=== PATIENT | male | born 1985 | race African-American/Black ===

== ENCOUNTER 2017-11-26 22:49 | Inpatient (IN) ==
[2017-11-26] MEDS ORDERED: SODIUM CHLORIDE 0.9% 500 ML IV STA (23:53)
[2017-11-27 00:24] LABS: Basophils % 0.3 % (0.0-0.8); Eosinophils % 0.1 % (0.00-10.9); Hematocrit 42.2 VOL% (42.0-52.0); Hemoglobin 14.4 GM/DL (14.0-18.0); Immature Granulocytes % 2.9 %; Immature Granulocytes Absolute 0.28 #; Lymphocytes # 1.1 10*3/uL (1.4-4.0); Lymphocytes % 11.3 % (21.2-54.2); Mean Corpuscular HGB Conc 34.1 GM/DL (32-36); Mean Corpuscular Hemoglobin 26 PG (27-34); Mean Corpuscular Volume 77.4 FL (87-102); Mean Platelet Volume 10.2 FL (9.6-12.0); Monocytes # 0.9 10*3/uL (0.11-0.8); Monocytes % 9.2 % (1.7-12.7); Neutrophils # 7.4 10*3/uL (1.4-7.4); Neutrophils % 76.2 % (38.7-73.9); Platelet Count 304 T/CUMM (130-400); Red Blood Count 5.45 MC/CUMM (3.8-5.5); Red Cell Distribution Width 12.9 % (9.3-17.3); White Blood Count 9.7 T/CUMM (4-12)
[2017-11-27 00:33] LABS: INR 1.1; PT Patient Result 11.1 SECS
[2017-11-27 00:56] LABS: Alanine Aminotransferase 36 U/L (16-61); Alkaline Phosphatase 73 U/L (45-117); Aspartate Amino Transferase 22 U/L (0-37); Blood Urea Nitrogen 12 MG/DL (7-18); Calcium 9.8 MG/DL (8.5-10.1); Glucose 352 MG/DL (74-106); Osmolality,Calculated 275.7 MOS/KG (273-304); Potassium 4.5 MMOL/L (3.5-5.1); Sodium 131 MMOL/L (136-145); Total Protein 7.8 G/DL (6.4-8.3); Uric Acid 4.7 MG/DL (3.5-7.2)
[2017-11-27] MEDS ORDERED: INSULIN REGULAR 100 UNIT/ML SUBCUT STA (01:19)
[2017-11-27] MEDS ORDERED: SODIUM CHLORIDE 0.9% 500 ML IV STA (01:20)
[2017-11-27 01:25] LABS: Ammonia 43 UMOL/L (11-32)
[2017-11-27 01:29] LABS: Sedimentation Rate-Westergren 25 MM/HR (0-15)
[2017-11-27 02:11] LABS: Apearance,Urine CLEAR (Clear); Bilirubin,Urine Negative (Negative); Blood, Urine Negative (Negative); Glucose,Urine (UA) >=500 mg/dL (Negative); Ketones,Urine 20 mg/dL (Negative); Mucus,Urine Occasional /LPF (Occasional); Nitrite,Urine Negative (Negative); Protein,Urine Negative; RBC,Urine 1 /HPF (0-4); Squamous Epithelial Cell,Urine Occasional /HPF (0-10); Urine Color Yellow (Yellow); Urine Specific Gravity 1.023 (1.001-1.035); Urine Urobilinogen < 2.0 EU/DL (0.2-1.0); WBC,Urine 1 /HPF (0-6)
[2017-11-27] MEDS ORDERED: diphenhydrAMINE CAP 25 MG CAPSULE PO PRN (02:29)
[2017-11-27] MEDS ORDERED: ACETAMINOPHEN 325 MG TABLET PO PRN (02:29)
[2017-11-27] MEDS ORDERED: GLUCAGON 1 MG VIAL IM PRN ×2 (02:29→12:40)
[2017-11-27] MEDS ORDERED: DEXTROSE 50% 25 GM/50 ML VIAL IV PRN ×2 (02:29→12:40)
[2017-11-27] MEDS ORDERED: LACTULOSE 20 GM/30 ML UDCUP PO PRN (02:29)
[2017-11-27] MEDS ORDERED: ONDANSETRON 4 MG/2 ML VIAL IV PRN (02:29)
[2017-11-27 03:18] LABS: HIV Antigen/Antibody Result Nonreactive (Nonreactive); Prolactin 5.6 NG/ML
[2017-11-27] MEDS: SODIUM CHLORIDE 0.9% 1,000 ML IV SCH (03:44)
[2017-11-27] MEDS ORDERED: LACTULOSE 20 GM/30 ML UDCUP PO ONE (04:00)
[2017-11-27 04:57] LABS: Basophils % 0.5 % (0.0-0.8); Eosinophils # 0.1 10*3/uL (0.0-0.87); Eosinophils % 0.8 % (0.00-10.9); Hematocrit 40.5 VOL% (42.0-52.0); Hemoglobin 13.7 GM/DL (14.0-18.0); Immature Granulocytes % 2.8 %; Immature Granulocytes Absolute 0.21 #; Lymphocytes # 1.6 10*3/uL (1.4-4.0); Lymphocytes % 21.1 % (21.2-54.2); Mean Corpuscular HGB Conc 33.8 GM/DL (32-36); Mean Corpuscular Hemoglobin 26 PG (27-34); Mean Corpuscular Volume 78.2 FL (87-102); Mean Platelet Volume 9.9 FL (9.6-12.0); Monocytes # 0.8 10*3/uL (0.11-0.8); Monocytes % 10.5 % (1.7-12.7); Neutrophils # 4.9 10*3/uL (1.4-7.4); Neutrophils % 64.3 % (38.7-73.9); Platelet Count 294 T/CUMM (130-400); Red Blood Count 5.18 MC/CUMM (3.8-5.5); Red Cell Distribution Width 13.1 % (9.3-17.3); White Blood Count 7.6 T/CUMM (4-12)
[2017-11-27 05:11] LABS: Ammonia < 10 UMOL/L (11-32)
[2017-11-27 05:34] LABS: Albumin 3.6 G/DL (3.4-5.0); Bilirubin,Total 0.7 MG/DL (0.2-1.0); Calcium 8.9 MG/DL (8.5-10.1); Osmolality,Calculated 275.1 MOS/KG (273-304); Potassium 3.8 MMOL/L (3.5-5.1); Risk Ratio 6.63; Total Protein 7.1 G/DL (6.4-8.3); VLDL CHOLESTEROL 35.6 MG/DL
[2017-11-27] MEDS: INSULIN REGULAR 100 UNIT/ML SUBCUT SCH ×3 (06:12→18:00)
[2017-11-27 06:34] LABS: Hepatitis A Ab IgM Quant 0.14 Index; Hepatitis A Ab IgM Result Negative (Negative); Hepatitis B Core IgM Quant 0.07 Index; Hepatitis B Core IgM Result Negative (Negative); Hepatitis B Surface Ag Quant < 0.10 Index; Hepatitis B Surface Ag Result Negative (Negative); Hepatitis C Virus Ab Quant 0.09 Index; Hepatitis C Virus Ab Result Negative (Negative)
[2017-11-27 06:37] LABS: Barbiturates Screen,Urine Negative (Negative); Benzodiazepines Screen,Urine Negative (Negative); Cannabinoid Screen,Urine Negative (Negative); Opiate Screen,Urine Negative (Negative); Phencyclidine Screen,Urine Negative (Negative)
[2017-11-27] MEDS: PANTOPRAZOLE 40 MG TABLET PO SCH (09:02)
[2017-11-27] MEDS ORDERED: VANCOMYCIN INJ 2,250 MG in SODIUM CHLORIDE 0.9% 500 ML IV ONE (16:00)
[2017-11-27 16:38] LABS: Glucose,CSF 136 MG/DL (40-70)
[2017-11-27] MEDS ORDERED: INSULIN GLARGINE 100 UNIT/ML SUBCUT SCH (17:00)
[2017-11-27 17:23] LABS: Lymphocytes,CSF 91 %; Neutrophils,CSF 9 %; Red Blood Cell,CSF 248 C/CUMM; White Blood Cell,CSF 106 C/CUMM
[2017-11-27 17:24] LABS: Appearance,CSF Clear
[2017-11-27] MEDS: cefTRIAXone 2,000 MG in SYRINGE 1 EACH IV SCH (17:58)
[2017-11-27] MEDS: metFORMIN 500 MG TABLET PO SCH (17:59)
[2017-11-27] MEDS: ACYCLOVIR INJ 900 MG in SODIUM CHLORIDE 0.9% 250 ML IV SCH (20:32)
[2017-11-28] MEDS: INSULIN REGULAR 100 UNIT/ML SUBCUT SCH ×5 (00:38→18:00)
[2017-11-28] MEDS: VANCOMYCIN INJ 1,250 MG in SODIUM CHLORIDE 0.9% 250 ML IV SCH ×3 (00:39→18:02)
[2017-11-28] MEDS: cefTRIAXone 2,000 MG in SYRINGE 1 EACH IV SCH ×2 (03:49→15:55)
[2017-11-28] MEDS: ACYCLOVIR INJ 900 MG in SODIUM CHLORIDE 0.9% 250 ML IV SCH ×3 (05:11→22:26)
[2017-11-28 05:20] LABS: Basophils % 0.5 % (0.0-0.8); Eosinophils # 0.1 10*3/uL (0.0-0.87); Eosinophils % 0.9 % (0.00-10.9); Hematocrit 36.7 VOL% (42.0-52.0); Hemoglobin 12.2 GM/DL (14.0-18.0); Immature Granulocytes Absolute 0.13 #; Lymphocytes # 1.3 10*3/uL (1.4-4.0); Lymphocytes % 19.7 % (21.2-54.2); Mean Corpuscular HGB Conc 33.2 GM/DL (32-36); Mean Corpuscular Hemoglobin 26 PG (27-34); Mean Corpuscular Volume 78.9 FL (87-102); Mean Platelet Volume 10.1 FL (9.6-12.0); Monocytes # 0.7 10*3/uL (0.11-0.8); Monocytes % 10.6 % (1.7-12.7); Neutrophils # 4.3 10*3/uL (1.4-7.4); Neutrophils % 66.3 % (38.7-73.9); Platelet Count 261 T/CUMM (130-400); Red Blood Count 4.65 MC/CUMM (3.8-5.5); Red Cell Distribution Width 13.2 % (9.3-17.3); White Blood Count 6.5 T/CUMM (4-12)
[2017-11-28 05:57] LABS: Albumin 2.9 G/DL (3.4-5.0); Bilirubin,Total 0.7 MG/DL (0.2-1.0); Calcium 8.3 MG/DL (8.5-10.1); Potassium 3.5 MMOL/L (3.5-5.1); Total Protein 6.1 G/DL (6.4-8.3)
[2017-11-28] MEDS: metFORMIN 500 MG TABLET PO SCH (08:57)
[2017-11-28] MEDS: PANTOPRAZOLE 40 MG TABLET PO SCH (08:57)
[2017-11-28] MEDS: ATORVASTATIN 20 MG TABLET PO SCH (08:57)
[2017-11-28] MEDS ORDERED: metFORMIN 500 MG TABLET PO SCH (12:19)
[2017-11-28] MEDS ORDERED: SODIUM CHLORIDE 0.9% 1,000 ML IV ONE (12:19)
[2017-11-28] MEDS: SODIUM CHLORIDE 0.9% 1,000 ML IV SCH (13:04)
[2017-11-28] MEDS ORDERED: TUBERCULIN SKIN TEST 0.1 ML SYRINGE INTRADERM ONE (16:33)
[2017-11-28] MEDS: ENOXAPARIN 40 MG/0.4 ML SYRINGE SUBCUT SCH (21:10)
[2017-11-28] MEDS: INSULIN GLARGINE 100 UNIT/ML SUBCUT SCH (21:10)
[2017-11-29] MEDS: INSULIN REGULAR 100 UNIT/ML SUBCUT SCH ×4 (00:23→17:45)
[2017-11-29] MEDS: VANCOMYCIN INJ 1,250 MG in SODIUM CHLORIDE 0.9% 250 ML IV SCH (02:31)
[2017-11-29] MEDS: cefTRIAXone 2,000 MG in SYRINGE 1 EACH IV SCH ×2 (04:32→17:40)
[2017-11-29] MEDS: ACYCLOVIR INJ 900 MG in SODIUM CHLORIDE 0.9% 250 ML IV SCH ×3 (04:34→21:17)
[2017-11-29] MEDS: SODIUM CHLORIDE 0.9% 1,000 ML IV SCH ×3 (08:52→21:00)
[2017-11-29] MEDS: PANTOPRAZOLE 40 MG TABLET PO SCH (08:53)
[2017-11-29] MEDS: ATORVASTATIN 20 MG TABLET PO SCH (08:53)
[2017-11-29] MEDS: INSULIN GLARGINE 100 UNIT/ML SUBCUT SCH ×2 (08:54→21:17)
[2017-11-29] MEDS: VANCOMYCIN INJ 1,500 MG in SODIUM CHLORIDE 0.9% 500 ML IV SCH ×2 (09:00→17:45)
[2017-11-29] MEDS: ENOXAPARIN 40 MG/0.4 ML SYRINGE SUBCUT SCH (21:17)
[2017-11-30] MEDS: INSULIN REGULAR 100 UNIT/ML SUBCUT SCH ×4 (00:57→18:40)
[2017-11-30] MEDS: VANCOMYCIN INJ 1,500 MG in SODIUM CHLORIDE 0.9% 500 ML IV SCH ×2 (02:44→10:24)
[2017-11-30] MEDS: cefTRIAXone 2,000 MG in SYRINGE 1 EACH IV SCH (04:01)
[2017-11-30] MEDS: ACYCLOVIR INJ 900 MG in SODIUM CHLORIDE 0.9% 250 ML IV SCH ×3 (05:20→21:06)
[2017-11-30] MEDS: SODIUM CHLORIDE 0.9% 1,000 ML IV SCH ×3 (07:30→12:54)
[2017-11-30] MEDS: INSULIN GLARGINE 100 UNIT/ML SUBCUT SCH ×2 (10:23→21:06)
[2017-11-30] MEDS: ATORVASTATIN 20 MG TABLET PO SCH (10:24)
[2017-11-30] MEDS: PANTOPRAZOLE 40 MG TABLET PO SCH (10:24)
[2017-11-30] MEDS: ENOXAPARIN 40 MG/0.4 ML SYRINGE SUBCUT SCH (21:08)
[2017-12-01] MEDS: INSULIN REGULAR 100 UNIT/ML SUBCUT SCH ×4 (00:46→18:36)
[2017-12-01] MEDS: SODIUM CHLORIDE 0.9% 1,000 ML IV SCH ×5 (01:27→23:03)
[2017-12-01] MEDS: ACYCLOVIR INJ 900 MG in SODIUM CHLORIDE 0.9% 250 ML IV SCH ×2 (04:43→14:30)
[2017-12-01 06:03] LABS: Basophils % 0.4 % (0.0-0.8); Eosinophils # 0.1 10*3/uL (0.0-0.87); Hematocrit 38.4 VOL% (42.0-52.0); Immature Granulocytes % 1.7 %; Immature Granulocytes Absolute 0.12 #; Lymphocytes % 14.5 % (21.2-54.2); Mean Corpuscular HGB Conc 33.9 GM/DL (32-36); Mean Corpuscular Hemoglobin 27 PG (27-34); Mean Corpuscular Volume 78.2 FL (87-102); Mean Platelet Volume 10.1 FL (9.6-12.0); Monocytes # 0.6 10*3/uL (0.11-0.8); Monocytes % 8.3 % (1.7-12.7); Neutrophils # 5.2 10*3/uL (1.4-7.4); Neutrophils % 73.1 % (38.7-73.9); Platelet Count 285 T/CUMM (130-400); Red Blood Count 4.91 MC/CUMM (3.8-5.5); Red Cell Distribution Width 13.2 % (9.3-17.3); White Blood Count 7.1 T/CUMM (4-12)
[2017-12-01 06:36] LABS: Calcium 8.5 MG/DL (8.5-10.1); Osmolality,Calculated 276.7 MOS/KG (273-304)
[2017-12-01] MEDS ORDERED: PROMETHAZINE 25 MG/1 ML VIAL IM ONE (07:00)
[2017-12-01] MEDS ORDERED: MEPERIDINE 50 MG/1 ML VIAL IM ONE (07:00)
[2017-12-01] MEDS ORDERED: GLYCOPYRROLATE 0.4 MG/2 ML VIAL IM ONE (07:00)
[2017-12-01] MEDS ORDERED: MIDAZOLAM 2 MG/2 ML VIAL ONE (07:01)
[2017-12-01] MEDS ORDERED: LIDOCAINE 1% 20 ML VIAL MISC INJ ONE (07:30)
[2017-12-01] MEDS ORDERED: MIDAZOLAM 2 MG/2 ML VIAL IV ONE (07:30)
[2017-12-01] MEDS ORDERED: LIDOCAINE 2% VISCOUS 100 ML BOTTLE SWISH/SPIT ONE (07:30)
[2017-12-01] MEDS ORDERED: LIDOCAINE 2% 20 ML VIAL RESP TX ONE (07:30)
[2017-12-01] MEDS: INSULIN GLARGINE 100 UNIT/ML SUBCUT SCH ×2 (09:00→20:54)
[2017-12-01] MEDS: ATORVASTATIN 20 MG TABLET PO SCH (09:00)
[2017-12-01] MEDS: PANTOPRAZOLE 40 MG TABLET PO SCH (09:00)
[2017-12-01 11:01] LABS: VDRL Spinal Fluid Negative (Negative)
[2017-12-01 14:50] LABS: CMV PCR Source CSF; Epstein-Barr Virus Result Negative (Negative); Epstein-Barr Virus Source CSF; Specimen Source CSF
[2017-12-01] MEDS: methylPREDNISolone SOD SUC 125 MG/2 ML VIAL IV SCH (18:34)
[2017-12-01] MEDS: ENOXAPARIN 40 MG/0.4 ML SYRINGE SUBCUT SCH (20:54)
[2017-12-02] MEDS: INSULIN REGULAR 100 UNIT/ML SUBCUT SCH ×5 (00:46→19:42)
[2017-12-02] MEDS: methylPREDNISolone SOD SUC 125 MG/2 ML VIAL IV SCH ×3 (00:48→17:19)
[2017-12-02] MEDS: SODIUM CHLORIDE 0.9% 1,000 ML IV SCH ×6 (05:47→22:18)
[2017-12-02] MEDS: INSULIN GLARGINE 100 UNIT/ML SUBCUT SCH ×2 (08:52→21:46)
[2017-12-02] MEDS: PANTOPRAZOLE 40 MG TABLET PO SCH (08:53)
[2017-12-02] MEDS: ATORVASTATIN 20 MG TABLET PO SCH (08:53)
[2017-12-02 18:51] LABS: TB2 Ag Minus Result 0.08 IU/mL
[2017-12-02] MEDS: ENOXAPARIN 40 MG/0.4 ML SYRINGE SUBCUT SCH (21:46)
[2017-12-02 22:01] LABS: West Nile Virus Ab, IgG, CSF Negative (Negative); West Nile Virus Ab, IgM, CSF Negative (Negative)
[2017-12-03] MEDS: INSULIN REGULAR 100 UNIT/ML SUBCUT SCH ×5 (01:26→23:40)
[2017-12-03] MEDS: SODIUM CHLORIDE 0.9% 1,000 ML IV SCH ×3 (01:26→12:12)
[2017-12-03] MEDS: methylPREDNISolone SOD SUC 125 MG/2 ML VIAL IV SCH ×3 (01:29→18:24)
[2017-12-03] MEDS: INSULIN GLARGINE 100 UNIT/ML SUBCUT SCH ×2 (09:53→21:12)
[2017-12-03] MEDS: IMMUNE GLOBULIN 10% 20 GM, IMMUNE GLOBULIN 10% 10 GM, IMMUNE GLOBULIN 10% 5 GM in PREMI... IV SCH (10:14)
[2017-12-03] MEDS: ATORVASTATIN 20 MG TABLET PO SCH (10:20)
[2017-12-03] MEDS: PANTOPRAZOLE 40 MG TABLET PO SCH (10:20)
[2017-12-03] MEDS: ENOXAPARIN 40 MG/0.4 ML SYRINGE SUBCUT SCH (21:12)
[2017-12-04] MEDS: SODIUM CHLORIDE 0.9% 1,000 ML IV SCH ×3 (01:26→09:48)
[2017-12-04] MEDS: methylPREDNISolone SOD SUC 125 MG/2 ML VIAL IV SCH (02:15)
[2017-12-04 06:13] LABS: Basophils % 0.3 % (0.0-0.8); Hematocrit 37.4 VOL% (42.0-52.0); Hemoglobin 12.8 GM/DL (14.0-18.0); Immature Granulocytes % 5.5 %; Immature Granulocytes Absolute 0.55 #; Lymphocytes # 0.7 10*3/uL (1.4-4.0); Lymphocytes % 6.8 % (21.2-54.2); Mean Corpuscular HGB Conc 34.2 GM/DL (32-36); Mean Corpuscular Hemoglobin 26 PG (27-34); Mean Corpuscular Volume 76.8 FL (87-102); Mean Platelet Volume 10.3 FL (9.6-12.0); Monocytes # 0.4 10*3/uL (0.11-0.8); Monocytes % 4.4 % (1.7-12.7); Neutrophils # 8.2 10*3/uL (1.4-7.4); Platelet Count 327 T/CUMM (130-400); Red Blood Count 4.87 MC/CUMM (3.8-5.5); Red Cell Distribution Width 13.2 % (9.3-17.3); White Blood Count 9.9 T/CUMM (4-12)
[2017-12-04] MEDS: INSULIN REGULAR 100 UNIT/ML SUBCUT SCH ×3 (06:29→18:26)
[2017-12-04 06:38] LABS: Calcium 8.6 MG/DL (8.5-10.1); Osmolality,Calculated 277.8 MOS/KG (273-304); Potassium 3.8 MMOL/L (3.5-5.1)
[2017-12-04 06:49] LABS: Band Neutrophils 1 % (0-10); Lymphocytes 3 % (20-55); Segmented Neutrophils 92 % (50-85); Total Cells Counted 100
[2017-12-04 06:50] LABS: Hypochromasia 1+; Platelet Estimate Adequate
[2017-12-04] MEDS: IMMUNE GLOBULIN 10% 20 GM, IMMUNE GLOBULIN 10% 10 GM, IMMUNE GLOBULIN 10% 5 GM in PREMI... IV SCH (09:37)
[2017-12-04] MEDS: INSULIN GLARGINE 100 UNIT/ML SUBCUT SCH ×2 (09:38→20:41)
[2017-12-04] MEDS: PANTOPRAZOLE 40 MG TABLET PO SCH (09:38)
[2017-12-04] MEDS: ATORVASTATIN 20 MG TABLET PO SCH (09:38)
[2017-12-04] MEDS: predniSONE 20 MG TABLET PO SCH (09:39)
[2017-12-04] MEDS: ENOXAPARIN 40 MG/0.4 ML SYRINGE SUBCUT SCH (20:40)
[2017-12-05] MEDS: INSULIN REGULAR 100 UNIT/ML SUBCUT SCH ×4 (00:02→17:51)
[2017-12-05] MEDS: ATORVASTATIN 20 MG TABLET PO SCH (09:05)
[2017-12-05] MEDS: predniSONE 20 MG TABLET PO SCH (09:05)
[2017-12-05] MEDS: PANTOPRAZOLE 40 MG TABLET PO SCH (09:05)
[2017-12-05] MEDS: INSULIN GLARGINE 100 UNIT/ML SUBCUT SCH ×2 (09:06→22:03)
[2017-12-05] MEDS: IMMUNE GLOBULIN 10% 20 GM, IMMUNE GLOBULIN 10% 10 GM, IMMUNE GLOBULIN 10% 5 GM in PREMI... IV SCH (09:09)
[2017-12-05 15:31] LABS: M. Tuberculosis PCR Result Negative (Negative); M. Tuberculosis PCR Source csf
[2017-12-05] MEDS: ENOXAPARIN 40 MG/0.4 ML SYRINGE SUBCUT SCH (22:05)
[2017-12-06] MEDS: INSULIN REGULAR 100 UNIT/ML SUBCUT SCH ×5 (05:24→23:09)
[2017-12-06] MEDS: ATORVASTATIN 20 MG TABLET PO SCH (10:23)
[2017-12-06] MEDS: PANTOPRAZOLE 40 MG TABLET PO SCH (10:23)
[2017-12-06] MEDS: predniSONE 20 MG TABLET PO SCH (10:23)
[2017-12-06] MEDS: INSULIN GLARGINE 100 UNIT/ML SUBCUT SCH ×2 (10:23→20:33)
[2017-12-06] MEDS: IMMUNE GLOBULIN 10% 20 GM, IMMUNE GLOBULIN 10% 10 GM, IMMUNE GLOBULIN 10% 5 GM in PREMI... IV SCH (10:55)
[2017-12-06] MEDS: ENOXAPARIN 40 MG/0.4 ML SYRINGE SUBCUT SCH (20:33)
[2017-12-07] MEDS: INSULIN REGULAR 100 UNIT/ML SUBCUT SCH ×3 (06:19→17:40)
[2017-12-07] MEDS: IMMUNE GLOBULIN 10% 20 GM, IMMUNE GLOBULIN 10% 10 GM, IMMUNE GLOBULIN 10% 5 GM in PREMI... IV SCH (09:26)
[2017-12-07] MEDS: ATORVASTATIN 20 MG TABLET PO SCH (09:29)
[2017-12-07] MEDS: PANTOPRAZOLE 40 MG TABLET PO SCH (09:29)
[2017-12-07] MEDS: predniSONE 20 MG TABLET PO SCH (09:29)
[2017-12-07] MEDS: INSULIN GLARGINE 100 UNIT/ML SUBCUT SCH ×2 (09:29→22:21)
[2017-12-07] MEDS: COENZYME Q10 100 MG CAPSULE PO SCH (15:52)
[2017-12-07] MEDS: metFORMIN 500 MG TABLET PO SCH (17:40)
[2017-12-07] MEDS: ENOXAPARIN 40 MG/0.4 ML SYRINGE SUBCUT SCH (22:20)
[2017-12-08 01:52] LABS: HIV Antigen/Antibody Result Nonreactive (Nonreactive); Hepatitis B Surface Ag Quant < 0.10 Index; Hepatitis B Surface Ag Result Negative (Negative); Hepatitis C Virus Ab Quant 0.34 Index; Hepatitis C Virus Ab Result Negative (Negative)
[2017-12-08] MEDS: INSULIN REGULAR 100 UNIT/ML SUBCUT SCH ×4 (02:09→17:26)
[2017-12-08 05:32] LABS: Basophils % 0.6 % (0.0-0.8); Eosinophils # 0.1 10*3/uL (0.0-0.87); Eosinophils % 2.6 % (0.00-10.9); Hematocrit 39.6 VOL% (42.0-52.0); Hemoglobin 13.2 GM/DL (14.0-18.0); Immature Granulocytes % 7.8 %; Immature Granulocytes Absolute 0.42 #; Lymphocytes # 1.3 10*3/uL (1.4-4.0); Mean Corpuscular HGB Conc 33.3 GM/DL (32-36); Mean Corpuscular Hemoglobin 26 PG (27-34); Mean Corpuscular Volume 77.3 FL (87-102); Mean Platelet Volume 10.1 FL (9.6-12.0); Monocytes # 0.5 10*3/uL (0.11-0.8); Platelet Count 299 T/CUMM (130-400); Red Blood Count 5.12 MC/CUMM (3.8-5.5); Red Cell Distribution Width 13.8 % (9.3-17.3); White Blood Count 5.4 T/CUMM (4-12)
[2017-12-08 05:56] LABS: Calcium 8.5 MG/DL (8.5-10.1)
[2017-12-08 05:57] LABS: Osmolality,Calculated 268.2 MOS/KG (273-304); Potassium 3.7 MMOL/L (3.5-5.1)
[2017-12-08 07:58] LABS: Band Neutrophils 2 % (0-10); Eosinophils 2 % (0-10); Lymphocytes 27 % (20-55); Segmented Neutrophils 57 % (50-85); Total Cells Counted 100
[2017-12-08 07:59] LABS: Hypochromasia 1+; Ovalocytes Slight; Platelet Estimate Adequate
[2017-12-08] MEDS: GLIMEPIRIDE 2 MG TABLET PO SCH (08:32)
[2017-12-08] MEDS: metFORMIN 500 MG TABLET PO SCH ×2 (08:33→17:26)
[2017-12-08] MEDS: predniSONE 20 MG TABLET PO SCH (08:33)
[2017-12-08] MEDS: PANTOPRAZOLE 40 MG TABLET PO SCH (08:33)
[2017-12-08] MEDS: ATORVASTATIN 20 MG TABLET PO SCH (08:33)
[2017-12-08] MEDS: COENZYME Q10 100 MG CAPSULE PO SCH (10:39)
[2017-12-08] MEDS: INSULIN GLARGINE 100 UNIT/ML SUBCUT SCH ×2 (10:40→21:12)
[2017-12-08] MEDS: ENOXAPARIN 40 MG/0.4 ML SYRINGE SUBCUT SCH (20:41)
[2017-12-09] MEDS: INSULIN REGULAR 100 UNIT/ML SUBCUT SCH ×4 (01:54→17:38)
[2017-12-09] MEDS: INSULIN GLARGINE 100 UNIT/ML SUBCUT SCH ×2 (08:20→22:39)
[2017-12-09] MEDS: metFORMIN 500 MG TABLET PO SCH ×2 (09:17→17:38)
[2017-12-09] MEDS: predniSONE 20 MG TABLET PO SCH (09:17)
[2017-12-09] MEDS: COENZYME Q10 100 MG CAPSULE PO SCH (09:17)
[2017-12-09] MEDS: PANTOPRAZOLE 40 MG TABLET PO SCH (09:18)
[2017-12-09] MEDS: GLIMEPIRIDE 2 MG TABLET PO SCH (09:18)
[2017-12-09] MEDS: ATORVASTATIN 20 MG TABLET PO SCH (09:18)
[2017-12-09] MEDS: ENOXAPARIN 40 MG/0.4 ML SYRINGE SUBCUT SCH (22:39)
[2017-12-10] MEDS: INSULIN REGULAR 100 UNIT/ML SUBCUT SCH ×4 (00:30→18:31)
[2017-12-10] MEDS: COENZYME Q10 100 MG CAPSULE PO SCH (11:09)
[2017-12-10] MEDS: ATORVASTATIN 20 MG TABLET PO SCH (11:09)
[2017-12-10] MEDS: INSULIN GLARGINE 100 UNIT/ML SUBCUT SCH ×2 (11:09→21:59)
[2017-12-10] MEDS: GLIMEPIRIDE 2 MG TABLET PO SCH (11:09)
[2017-12-10] MEDS: PANTOPRAZOLE 40 MG TABLET PO SCH (11:09)
[2017-12-10] MEDS: metFORMIN 500 MG TABLET PO SCH ×2 (11:10→18:31)
[2017-12-10] MEDS: predniSONE 20 MG TABLET PO SCH (14:36)
[2017-12-10] MEDS: ENOXAPARIN 40 MG/0.4 ML SYRINGE SUBCUT SCH (21:58)
[2017-12-11] MEDS: INSULIN REGULAR 100 UNIT/ML SUBCUT SCH ×3 (01:12→11:57)
[2017-12-11 04:33] LABS: Basophils # 0.1 10*3/uL (0.0-0.2); Basophils % 0.7 % (0.0-0.8); Eosinophils # 0.1 10*3/uL (0.0-0.87); Eosinophils % 1.4 % (0.00-10.9); Hemoglobin 13.1 GM/DL (14.0-18.0); Immature Granulocytes % 6.4 %; Immature Granulocytes Absolute 0.47 #; Lymphocytes # 1.4 10*3/uL (1.4-4.0); Lymphocytes % 18.8 % (21.2-54.2); Mean Corpuscular HGB Conc 32.8 GM/DL (32-36); Mean Corpuscular Hemoglobin 26 PG (27-34); Mean Corpuscular Volume 79.4 FL (87-102); Monocytes # 0.7 10*3/uL (0.11-0.8); Monocytes % 9.5 % (1.7-12.7); Neutrophils # 4.7 10*3/uL (1.4-7.4); Neutrophils % 63.2 % (38.7-73.9); Platelet Count 258 T/CUMM (130-400); Red Blood Count 5.04 MC/CUMM (3.8-5.5); Red Cell Distribution Width 13.8 % (9.3-17.3); White Blood Count 7.4 T/CUMM (4-12)
[2017-12-11 04:48] LABS: Calcium 8.8 MG/DL (8.5-10.1); Osmolality,Calculated 266.4 MOS/KG (273-304); Potassium 4.4 MMOL/L (3.5-5.1)
[2017-12-11 05:10] LABS: Band Neutrophils 2 % (0-10); Hypochromasia 1+; Lymphocytes 20 % (20-55); Metamyelocytes 1 %; Microcytosis Slight; Myelocytes 1 %; Platelet Estimate Normal; Segmented Neutrophils 64 % (50-85); Total Cells Counted 100
[2017-12-11] MEDS: GLIMEPIRIDE 2 MG TABLET PO SCH (08:57)
[2017-12-11] MEDS: metFORMIN 500 MG TABLET PO SCH (08:57)
[2017-12-11] MEDS: ATORVASTATIN 20 MG TABLET PO SCH (09:35)
[2017-12-11] MEDS: PANTOPRAZOLE 40 MG TABLET PO SCH (09:35)
[2017-12-11] MEDS: predniSONE 20 MG TABLET PO SCH (09:35)
[2017-12-11] MEDS: INSULIN GLARGINE 100 UNIT/ML SUBCUT SCH (09:35)
[2017-12-11] MEDS: COENZYME Q10 100 MG CAPSULE PO SCH (09:36)
[2017-12-11 11:49] VITALS: BP 134/74
[2017-12-14] MEDS ORDERED: predniSONE 10 MG TABLET PO SCH (09:00)
[2017-12-18] MEDS ORDERED: predniSONE 5 MG TABLET PO SCH (09:00)
== END 2017-12-11 13:45 | disposition swing bed (61) | DRG 987 ==
LOC: N.ED 22:49 → N.EDINP 11-27 02:29 → SUATTDRO 11-27 02:29 → N.4E 11-27 03:11 → N.3E 11-28 11:21
PROVIDERS: ADMIT Internal Medicine; ATTEND Internal Medicine
PROC: BRONCHB (2017-12-01 07:35)

== ENCOUNTER 2018-01-16 10:52 | Observation (INO) ==
[2018-01-16 11:49] LABS: Basophils % 0.4 % (0.0-0.8); Eosinophils % 0.4 % (0.00-10.9); Hematocrit 42.6 VOL% (42.0-52.0); Hemoglobin 14.1 GM/DL (14.0-18.0); Immature Granulocytes % 2.9 %; Immature Granulocytes Absolute 0.29 #; Lymphocytes # 1.1 10*3/uL (1.4-4.0); Lymphocytes % 10.8 % (21.2-54.2); Mean Corpuscular HGB Conc 33.1 GM/DL (32-36); Mean Corpuscular Hemoglobin 26 PG (27-34); Mean Corpuscular Volume 78.9 FL (87-102); Mean Platelet Volume 9.9 FL (9.6-12.0); Monocytes # 0.9 10*3/uL (0.11-0.8); Monocytes % 9.3 % (1.7-12.7); Neutrophils # 7.7 10*3/uL (1.4-7.4); Neutrophils % 76.2 % (38.7-73.9); Platelet Count 326 T/CUMM (130-400); Red Cell Distribution Width 13.8 % (9.3-17.3)
[2018-01-16 12:01] LABS: Albumin 3.9 G/DL (3.4-5.0); Bilirubin,Total 0.5 MG/DL (0.2-1.0); Calcium 9.6 MG/DL (8.5-10.1); Osmolality,Calculated 276.8 MOS/KG (273-304); Potassium 3.8 MMOL/L (3.5-5.1); Total Protein 8.6 G/DL (6.4-8.3)
[2018-01-16 12:52] LABS: Sedimentation Rate-Westergren 20 MM/HR (0-15)
[2018-01-16] MEDS ORDERED: ONDANSETRON 4 MG/2 ML VIAL IV PRN (13:15)
[2018-01-16] MEDS ORDERED: GLUCAGON 1 MG VIAL IM PRN (13:15)
[2018-01-16] MEDS ORDERED: ACETAMINOPHEN 325 MG TABLET PO PRN (13:15)
[2018-01-16] MEDS ORDERED: DEXTROSE 50% 25 GM/50 ML VIAL IV PRN (13:15)
[2018-01-16] MEDS: SODIUM CHLORIDE 0.45% 1,000 ML IV SCH (17:28)
[2018-01-16] MEDS: ENOXAPARIN 40 MG/0.4 ML SYRINGE SUBCUT SCH (17:29)
[2018-01-16] MEDS: methylPREDNISolone SOD SUC 40 MG/1 ML VIAL IV SCH ×2 (17:29→21:28)
[2018-01-16] MEDS: metFORMIN 500 MG TABLET PO SCH (17:30)
[2018-01-16] MEDS: INSULIN LISPRO 100 UNIT/ML SUBCUT SCH ×2 (17:38→21:28)
[2018-01-16 17:47] LABS: Apearance,Urine CLEAR (Clear); Bilirubin,Urine Negative (Negative); Blood, Urine Negative (Negative); Glucose,Urine (UA) Negative (Negative); Ketones,Urine Negative (Negative); Nitrite,Urine Negative (Negative); Protein,Urine Negative; RBC,Urine <1 /HPF (0-4); Urine Color Yellow (Yellow); Urine Urobilinogen < 2.0 EU/DL (0.2-1.0); WBC,Urine <1 /HPF (0-6)
[2018-01-16 17:54] LABS: Barbiturates Screen,Urine Negative (Negative); Benzodiazepines Screen,Urine Negative (Negative); Cannabinoid Screen,Urine Negative (Negative); Opiate Screen,Urine Negative (Negative); Phencyclidine Screen,Urine Negative (Negative)
[2018-01-16] MEDS: DOCUSATE SODIUM 100 MG CAPSULE PO SCH (21:27)
[2018-01-16] MEDS: INSULIN GLARGINE 100 UNIT/ML SUBCUT SCH (21:28)
[2018-01-17] MEDS: SODIUM CHLORIDE 0.45% 1,000 ML IV SCH ×2 (01:13→18:19)
[2018-01-17] MEDS: methylPREDNISolone SOD SUC 40 MG/1 ML VIAL IV SCH ×3 (06:01→20:35)
[2018-01-17] MEDS: DOCUSATE SODIUM 100 MG CAPSULE PO SCH ×2 (10:41→20:37)
[2018-01-17] MEDS: GLIMEPIRIDE 2 MG TABLET PO SCH (10:41)
[2018-01-17] MEDS: ATORVASTATIN 20 MG TABLET PO SCH (10:41)
[2018-01-17] MEDS: metFORMIN 500 MG TABLET PO SCH ×2 (10:41→17:14)
[2018-01-17] MEDS: PANTOPRAZOLE 40 MG TABLET PO SCH (10:41)
[2018-01-17] MEDS: INSULIN LISPRO 100 UNIT/ML SUBCUT SCH ×4 (10:42→21:50)
[2018-01-17] MEDS: ENOXAPARIN 40 MG/0.4 ML SYRINGE SUBCUT SCH (15:12)
[2018-01-17] MEDS: INSULIN GLARGINE 100 UNIT/ML SUBCUT SCH (20:36)
[2018-01-18] MEDS ORDERED: ALPRAZolam 0.5 MG TABLET PO ONE
[2018-01-18] MEDS: methylPREDNISolone SOD SUC 40 MG/1 ML VIAL IV SCH ×2 (05:31→12:19)
[2018-01-18] MEDS: INSULIN LISPRO 100 UNIT/ML SUBCUT SCH ×4 (08:48→21:22)
[2018-01-18] MEDS: ENOXAPARIN 40 MG/0.4 ML SYRINGE SUBCUT SCH (08:48)
[2018-01-18] MEDS: ATORVASTATIN 20 MG TABLET PO SCH (08:49)
[2018-01-18] MEDS: metFORMIN 500 MG TABLET PO SCH ×2 (08:49→17:20)
[2018-01-18] MEDS: DOCUSATE SODIUM 100 MG CAPSULE PO SCH ×2 (08:49→21:22)
[2018-01-18] MEDS: GLIMEPIRIDE 2 MG TABLET PO SCH (08:49)
[2018-01-18] MEDS: PANTOPRAZOLE 40 MG TABLET PO SCH (08:49)
[2018-01-18] MEDS ORDERED: methylPREDNISolone SOD SUC 125 MG/2 ML VIAL IV SCH (15:30)
[2018-01-18] MEDS: INSULIN GLARGINE 100 UNIT/ML SUBCUT SCH (21:21)
[2018-01-18] MEDS ORDERED: ZALEPLON 5 MG CAPSULE PO ONE (22:11)
[2018-01-19 05:25] LABS: Basophils % 0.3 % (0.0-0.8); Hematocrit 38.6 VOL% (42.0-52.0); Hemoglobin 12.4 GM/DL (14.0-18.0); Immature Granulocytes % 4.9 %; Immature Granulocytes Absolute 0.65 #; Lymphocytes # 2.6 10*3/uL (1.4-4.0); Lymphocytes % 19.7 % (21.2-54.2); Mean Corpuscular HGB Conc 32.1 GM/DL (32-36); Mean Corpuscular Hemoglobin 26 PG (27-34); Mean Corpuscular Volume 80.9 FL (87-102); Monocytes # 1.3 10*3/uL (0.11-0.8); Monocytes % 9.7 % (1.7-12.7); Neutrophils # 8.7 10*3/uL (1.4-7.4); Neutrophils % 65.4 % (38.7-73.9); Platelet Count 319 T/CUMM (130-400); Red Blood Count 4.77 MC/CUMM (3.8-5.5); Red Cell Distribution Width 13.7 % (9.3-17.3); White Blood Count 13.3 T/CUMM (4-12)
[2018-01-19 05:49] LABS: Band Neutrophils 1 % (0-10); Hypochromasia 1+; Lymphocytes 19 % (20-55); Platelet Estimate Adequate; Segmented Neutrophils 70 % (50-85); Total Cells Counted 100
[2018-01-19 05:50] LABS: Calcium 8.9 MG/DL (8.5-10.1); Osmolality,Calculated 287.8 MOS/KG (273-304); Potassium 3.7 MMOL/L (3.5-5.1)
[2018-01-19] MEDS: INSULIN LISPRO 100 UNIT/ML SUBCUT SCH ×4 (07:52→21:18)
[2018-01-19] MEDS: GLIMEPIRIDE 2 MG TABLET PO SCH (09:22)
[2018-01-19] MEDS: ENOXAPARIN 40 MG/0.4 ML SYRINGE SUBCUT SCH (09:22)
[2018-01-19] MEDS: DOCUSATE SODIUM 100 MG CAPSULE PO SCH ×2 (09:23→21:18)
[2018-01-19] MEDS: ATORVASTATIN 20 MG TABLET PO SCH (09:23)
[2018-01-19] MEDS: PANTOPRAZOLE 40 MG TABLET PO SCH (09:23)
[2018-01-19] MEDS: metFORMIN 500 MG TABLET PO SCH ×2 (09:23→17:37)
[2018-01-19] MEDS: QUEtiapine 25 MG TABLET PO SCH (21:18)
[2018-01-19] MEDS: INSULIN GLARGINE 100 UNIT/ML SUBCUT SCH (21:19)
[2018-01-20] MEDS: INSULIN LISPRO 100 UNIT/ML SUBCUT SCH ×4 (07:30→20:56)
[2018-01-20] MEDS: metFORMIN 500 MG TABLET PO SCH ×2 (08:32→16:43)
[2018-01-20] MEDS: DOCUSATE SODIUM 100 MG CAPSULE PO SCH ×2 (08:32→20:56)
[2018-01-20] MEDS: GLIMEPIRIDE 2 MG TABLET PO SCH (08:32)
[2018-01-20] MEDS: QUEtiapine 25 MG TABLET PO SCH ×2 (08:32→20:56)
[2018-01-20] MEDS: ATORVASTATIN 20 MG TABLET PO SCH (08:32)
[2018-01-20] MEDS: ENOXAPARIN 40 MG/0.4 ML SYRINGE SUBCUT SCH (08:32)
[2018-01-20] MEDS: PANTOPRAZOLE 40 MG TABLET PO SCH (08:32)
[2018-01-20] MEDS: INSULIN GLARGINE 100 UNIT/ML SUBCUT SCH (20:57)
[2018-01-20 21:17] VITALS: BP 124/78
== END 2018-01-20 21:08 | disposition home health service (06) ==
LOC: N.ED 10:52 → N.EDINP 10:52 → N.2E 14:54
PROVIDERS: ADMIT Family Medicine; ATTEND Family Medicine

== ENCOUNTER 2018-05-10 17:04 | Inpatient (IN) ==
[2018-05-10] MEDS ORDERED: SODIUM CHLORIDE 0.9% 1,000 ML IV STA (17:57)
[2018-05-10] MEDS ORDERED: IBUPROFEN 600 MG TABLET PO STA (17:57)
[2018-05-10 18:22] LABS: Basophils % 0.2 % (0.0-0.8); Eosinophils % 0.2 % (0.00-10.9); Hemoglobin 12.5 GM/DL (14.0-18.0); Immature Granulocytes % 0.5 %; Immature Granulocytes Absolute 0.04 #; Lymphocytes # 0.8 10*3/uL (1.4-4.0); Lymphocytes % 8.6 % (21.2-54.2); Mean Corpuscular HGB Conc 29.6 GM/DL (32-36); Mean Corpuscular Hemoglobin 26 PG (27-34); Mean Corpuscular Volume 86.7 FL (87-102); Mean Platelet Volume 13.5 FL (9.6-12.0); Monocytes # 0.2 10*3/uL (0.11-0.8); Monocytes % 2.1 % (1.7-12.7); Neutrophils # 7.8 10*3/uL (1.4-7.4); Neutrophils % 88.4 % (38.7-73.9); Platelet Count 188 T/CUMM (130-400); Red Blood Count 4.87 MC/CUMM (3.8-5.5); Red Cell Distribution Width 16.5 % (9.3-17.3); White Blood Count 8.8 T/CUMM (4-12)
[2018-05-10 18:30] LABS: Hematocrit 42.2 VOL% (42.0-52.0)
[2018-05-10 18:43] LABS: Alanine Aminotransferase 121 U/L (16-61); Albumin 2.8 G/DL (3.4-5.0); Alkaline Phosphatase 172 U/L (45-117); Aspartate Amino Transferase 59 U/L (0-37); Blood Urea Nitrogen 21 MG/DL (7-18); Calcium 10.1 MG/DL (8.5-10.1); Glucose 360 MG/DL (74-106); Potassium 3.9 MMOL/L (3.5-5.1); Sodium 157 MMOL/L (136-145); Total Protein 7.4 G/DL (6.4-8.3)
[2018-05-10] MEDS ORDERED: PIPERACILLIN/TAZOBACTAM 3,375 MG in SODIUM CHLORIDE 0.9% 100 ML IV STA (19:34)
[2018-05-10] MEDS ORDERED: SODIUM CHLORIDE 0.9% 2,000 ML IV STA (19:39)
[2018-05-10] MEDS ORDERED: metroNIDAZOLE INJ 500 MG in PREMIX 1 EACH IV STA (19:44)
[2018-05-10] MEDS ORDERED: cefTRIAXone 1,000 MG in SODIUM CHLORIDE 0.9% 100 ML IV STA (19:44)
[2018-05-10] MEDS ORDERED: ONDANSETRON 4 MG/2 ML VIAL IV PRN (21:54)
[2018-05-10] MEDS ORDERED: PROMETHAZINE 25 MG/1 ML VIAL IM PRN (21:54)
[2018-05-10] MEDS ORDERED: HYDROmorphone 2 MG/1 ML VIAL IV PRN (21:54)
[2018-05-10] MEDS ORDERED: LACTATED RINGERS 1,000 ML IV SCH (22:00)
[2018-05-10 22:02] LABS: ABG Base Excess 0.3 MMOL/L (-2.5-2.5); ABG HCO3 24.7 MMOL/L (20-26); ABG PCO2 40.2 MM HG (35-48); ABG PH 7.402 (7.35-7.45); ABG TCO2 22.9 MMOL/L (23-27)
[2018-05-10] MEDS: PROPOFOL 1,000 MG/100 ML BOTTLE IV SCH (22:10)
[2018-05-10] MEDS ORDERED: HYDROCORTISONE 100 MG VIAL ONE (22:16)
[2018-05-10] MEDS ORDERED: ROCURONIUM 100 MG/10 ML VIAL IV ONE (22:16)
[2018-05-10] MEDS ORDERED: MIDAZOLAM 10 MG/2 ML VIAL ONE (22:16)
[2018-05-10] MEDS ORDERED: fentaNYL 100 MCG/2 ML VIAL ONE (22:16)
[2018-05-10] MEDS ORDERED: SUCCINYLCHOLINE 200 MG/10 ML VIAL ONE (22:16)
[2018-05-10] MEDS ORDERED: SEVOFLURANE 1 UNIT/15 MINUTE INH ONE (22:16)
[2018-05-10] MEDS ORDERED: PROPOFOL 200 MG/20 ML VIAL IV ONE (22:16)
[2018-05-10 22:45] LABS: Basophils # 0.1 10*3/uL (0.0-0.2); Basophils % 0.9 % (0.0-0.8); Eosinophils % 0.4 % (0.00-10.9); Hematocrit 31.1 VOL% (42.0-52.0); Hemoglobin 9.3 GM/DL (14.0-18.0); Lymphocytes # 0.6 10*3/uL (1.4-4.0); Lymphocytes % 10.6 % (21.2-54.2); Mean Corpuscular HGB Conc 29.9 GM/DL (32-36); Mean Corpuscular Hemoglobin 26 PG (27-34); Mean Corpuscular Volume 86.9 FL (87-102); Mean Platelet Volume 12.5 FL (9.6-12.0); Monocytes # 0.2 10*3/uL (0.11-0.8); Monocytes % 3.4 % (1.7-12.7); Neutrophils # 4.7 10*3/uL (1.4-7.4); Neutrophils % 84.7 % (38.7-73.9); Platelet Count 134 T/CUMM (130-400); Red Blood Count 3.58 MC/CUMM (3.8-5.5); Red Cell Distribution Width 16.4 % (9.3-17.3); White Blood Count 5.6 T/CUMM (4-12)
[2018-05-10 23:04] LABS: Bilirubin,Total 0.4 MG/DL (0.2-1.0); Calcium 8.7 MG/DL (8.5-10.1); Osmolality,Calculated 328.6 MOS/KG (273-304); Potassium 3.7 MMOL/L (3.5-5.1); Total Protein 5.5 G/DL (6.4-8.3)
[2018-05-10] MEDS: VANCOMYCIN INJ 1,500 MG in SODIUM CHLORIDE 0.9% 500 ML IV SCH (23:06)
[2018-05-11] MEDS: PIPERACILLIN/TAZOBACTAM 3,375 MG in SODIUM CHLORIDE 0.9% 100 ML IV SCH ×3 (01:04→16:30)
[2018-05-11 01:39] LABS: Calcium 9.1 MG/DL (8.5-10.1); Osmolality,Calculated 337.9 MOS/KG (273-304); Potassium 3.7 MMOL/L (3.5-5.1)
[2018-05-11 02:11] LABS: Apearance,Urine CLEAR (Clear); Bilirubin,Urine Negative (Negative); Blood, Urine Small mg/dL (Negative); Glucose,Urine (UA) 150 mg/dL (Negative); Ketones,Urine Negative (Negative); Nitrite,Urine Negative (Negative); Protein,Urine Negative; RBC,Urine 1 /HPF (0-4); Squamous Epithelial Cell,Urine Occasional /HPF (0-10); Urine Color Colorless (Yellow); Urine Specific Gravity 1.004 (1.001-1.035); Urine Urobilinogen < 2.0 EU/DL (0.2-1.0); WBC,Urine 1 /HPF (0-6)
[2018-05-11] MEDS ORDERED: DESMOPRESSIN 4 MCG/1 ML AMP IV ONE (02:24)
[2018-05-11] MEDS ORDERED: GLUCAGON 1 MG VIAL IM PRN (02:47)
[2018-05-11] MEDS ORDERED: DEXTROSE 50% 25 GM/50 ML SYRINGE IV PRN (02:47)
[2018-05-11] MEDS: DEXTROSE 5% 1,000 ML IV SCH ×2 (03:01→19:12)
[2018-05-11 03:21] LABS: ABG Base Excess 1.7 MMOL/L (-2.5-2.5); ABG Oxygen Saturation 99.4 % (95-100); ABG PCO2 36.8 MM HG (35-48); ABG PH 7.449 (7.35-7.45); ABG TCO2 22.7 MMOL/L (23-27); Allen Test Positive; Pt O2 Delivery Device Ventilator
[2018-05-11] MEDS: PROPOFOL 1,000 MG/100 ML BOTTLE IV SCH (04:25)
[2018-05-11 04:39] LABS: Basophils % 0.5 % (0.0-0.8); Hematocrit 34.8 VOL% (42.0-52.0); Hemoglobin 10.6 GM/DL (14.0-18.0); Immature Granulocytes % 0.2 %; Immature Granulocytes Absolute 0.02 #; Lymphocytes # 0.5 10*3/uL (1.4-4.0); Lymphocytes % 6.3 % (21.2-54.2); Mean Corpuscular HGB Conc 30.5 GM/DL (32-36); Mean Corpuscular Hemoglobin 26 PG (27-34); Mean Corpuscular Volume 85.5 FL (87-102); Monocytes # 0.2 10*3/uL (0.11-0.8); Monocytes % 2.4 % (1.7-12.7); Neutrophils # 7.3 10*3/uL (1.4-7.4); Neutrophils % 90.6 % (38.7-73.9); Platelet Count 158 T/CUMM (130-400); Red Blood Count 4.07 MC/CUMM (3.8-5.5); Red Cell Distribution Width 16.4 % (9.3-17.3); White Blood Count 8.1 T/CUMM (4-12)
[2018-05-11 05:04] LABS: Albumin 2.2 G/DL (3.4-5.0); Bilirubin,Total 0.6 MG/DL (0.2-1.0); Calcium 9.4 MG/DL (8.5-10.1); Osmolality,Calculated 342.8 MOS/KG (273-304); Potassium 3.6 MMOL/L (3.5-5.1); Total Protein 6.2 G/DL (6.4-8.3)
[2018-05-11 05:15] LABS: Band Neutrophils 16 % (0-10); Hypochromasia 1+; Lymphocytes 6 % (20-55); Platelet Estimate Adequate; Segmented Neutrophils 76 % (50-85); Total Cells Counted 100
[2018-05-11] MEDS: LEVOTHYROXINE 75 MCG TABLET PO SCH (05:54)
[2018-05-11] MEDS: INSULIN REGULAR 100 UNIT/ML SUBCUT SCH ×4 (05:55→18:21)
[2018-05-11 06:46] LABS: Calcium 8.4 MG/DL (8.5-10.1); Osmolality,Calculated 334.7 MOS/KG (273-304); Potassium 3.2 MMOL/L (3.5-5.1)
[2018-05-11] MEDS: PANTOPRAZOLE 40 MG VIAL IV SCH ×2 (07:40→12:15)
[2018-05-11] MEDS: POTASSIUM CHLORIDE RIDER 10 MEQ in PREMIX 1 EACH IV PRN ×4 (08:47→22:38)
[2018-05-11] MEDS ORDERED: DESMOPRESSIN ACETATE 0.1 MG PO SCH (09:00)
[2018-05-11] MEDS ORDERED: PANTOPRAZOLE 40 MG VIAL IV SCH (09:00)
[2018-05-11] MEDS: VANCOMYCIN INJ 1,500 MG in SODIUM CHLORIDE 0.9% 500 ML IV SCH ×2 (11:10→23:02)
[2018-05-11] MEDS ORDERED: ROCURONIUM 100 MG/10 ML VIAL IV ONE (11:15)
[2018-05-11] MEDS ORDERED: PHENYLEPHRINE 1 MG/10 ML SYRINGE IV ONE (11:15)
[2018-05-11] MEDS ORDERED: MIDAZOLAM 10 MG/2 ML VIAL ONE (11:15)
[2018-05-11] MEDS ORDERED: ETOMIDATE 40 MG/20 ML VIAL IV ONE (11:15)
[2018-05-11] MEDS ORDERED: SEVOFLURANE 1 UNIT/15 MINUTE INH ONE (11:15)
[2018-05-11] MEDS: ENOXAPARIN 40 MG/0.4 ML SYRINGE SUBCUT SCH (12:29)
[2018-05-11] MEDS: AMANTADINE 100 MG CAPSULE PO SCH ×2 (12:29→21:30)
[2018-05-11] MEDS: CALCIUM (CARBONATE) 600 MG TABLET PO SCH ×3 (12:30→21:31)
[2018-05-11] MEDS: HYDROCORTISONE 10 MG TABLET PO SCH ×2 (12:30→21:30)
[2018-05-11] MEDS: ASPIRIN CHEW 81 MG TABLET PO SCH (12:30)
[2018-05-11] MEDS: SODIUM CHLORIDE 0.45% 1,000 ML IV SCH (13:00)
[2018-05-11 14:14] LABS: Calcium 8.9 MG/DL (8.5-10.1); Osmolality,Calculated 325.2 MOS/KG (273-304); Potassium 3.2 MMOL/L (3.5-5.1)
[2018-05-11] MEDS ORDERED: DESMOPRESSIN 10 MCG NASAL SPRAY 5 ML BOTTLE ONE NARE ONE (15:00)
[2018-05-11] MEDS ORDERED: LACTATED RINGERS 1,000 ML IV ONE (16:08)
[2018-05-11 16:35] LABS: Basophils # 0.1 10*3/uL (0.0-0.2); Basophils % 0.7 % (0.0-0.8); Eosinophils % 0.4 % (0.00-10.9); Hematocrit 30.6 VOL% (42.0-52.0); Hemoglobin 9.4 GM/DL (14.0-18.0); Immature Granulocytes % 0.4 %; Immature Granulocytes Absolute 0.03 #; Lymphocytes # 0.6 10*3/uL (1.4-4.0); Lymphocytes % 7.9 % (21.2-54.2); Mean Corpuscular HGB Conc 30.7 GM/DL (32-36); Mean Corpuscular Hemoglobin 26 PG (27-34); Mean Corpuscular Volume 85.2 FL (87-102); Monocytes # 0.2 10*3/uL (0.11-0.8); Monocytes % 2.4 % (1.7-12.7); Neutrophils # 6.3 10*3/uL (1.4-7.4); Neutrophils % 88.2 % (38.7-73.9); Platelet Count 140 T/CUMM (130-400); Red Blood Count 3.59 MC/CUMM (3.8-5.5); Red Cell Distribution Width 16.3 % (9.3-17.3); White Blood Count 7.2 T/CUMM (4-12)
[2018-05-11 19:35] LABS: Calcium 8.8 MG/DL (8.5-10.1); Osmolality,Calculated 321.3 MOS/KG (273-304); Potassium 3.4 MMOL/L (3.5-5.1)
[2018-05-11 20:04] LABS: Band Neutrophils 3 % (0-10); Lymphocytes 6 % (20-55); Microcytosis Slight; Platelet Estimate Normal; Segmented Neutrophils 89 % (50-85); Total Cells Counted 100
[2018-05-11] MEDS ORDERED: DESMOPRESSIN 10 MCG NASAL SPRAY 5 ML BOTTLE ONE NARE PRN (21:08)
[2018-05-11] MEDS: ATORVASTATIN 80 MG TABLET PO SCH (21:30)
[2018-05-11] MEDS: QUEtiapine 100 MG TABLET PO SCH (21:30)
[2018-05-11 23:11] LABS: Calcium 8.8 MG/DL (8.5-10.1); Osmolality,Calculated 321.6 MOS/KG (273-304); Potassium 3.6 MMOL/L (3.5-5.1)
[2018-05-12] MEDS: SODIUM CHLORIDE 0.45% 1,000 ML IV SCH (00:05)
[2018-05-12] MEDS: POTASSIUM CHLORIDE RIDER 10 MEQ in PREMIX 1 EACH IV PRN ×3 (00:08→07:10)
[2018-05-12] MEDS: INSULIN REGULAR 100 UNIT/ML SUBCUT SCH ×4 (00:19→17:27)
[2018-05-12] MEDS: PIPERACILLIN/TAZOBACTAM 3,375 MG in SODIUM CHLORIDE 0.9% 100 ML IV SCH ×3 (00:27→17:08)
[2018-05-12] MEDS: PROPOFOL 1,000 MG/100 ML BOTTLE IV SCH (01:24)
[2018-05-12 02:35] LABS: Calcium 8.6 MG/DL (8.5-10.1); Osmolality,Calculated 315.2 MOS/KG (273-304); Potassium 3.7 MMOL/L (3.5-5.1)
[2018-05-12 03:07] LABS: ABG Base Excess 0.4 MMOL/L (-2.5-2.5); ABG HCO3 24.8 MMOL/L (20-26); ABG Oxygen Saturation 99.5 % (95-100); ABG PCO2 33.9 MM HG (35-48); ABG PH 7.454 (7.35-7.45); ABG TCO2 21.1 MMOL/L (23-27); Allen Test Positive; Pt O2 Delivery Device Ventilator
[2018-05-12 04:51] LABS: Basophils % 0.3 % (0.0-0.8); Hematocrit 28.2 VOL% (42.0-52.0); Hemoglobin 8.6 GM/DL (14.0-18.0); Immature Granulocytes % 0.5 %; Immature Granulocytes Absolute 0.03 #; Lymphocytes # 0.6 10*3/uL (1.4-4.0); Mean Corpuscular HGB Conc 30.5 GM/DL (32-36); Mean Corpuscular Hemoglobin 26 PG (27-34); Mean Corpuscular Volume 84.7 FL (87-102); Mean Platelet Volume 13.5 FL (9.6-12.0); Monocytes # 0.2 10*3/uL (0.11-0.8); Monocytes % 2.9 % (1.7-12.7); NRBC # 0.02 10*3/uL; Neutrophils # 5.7 10*3/uL (1.4-7.4); Neutrophils % 87.3 % (38.7-73.9); Platelet Count 121 T/CUMM (130-400); Red Blood Count 3.33 MC/CUMM (3.8-5.5); Red Cell Distribution Width 16.3 % (9.3-17.3); White Blood Count 6.6 T/CUMM (4-12)
[2018-05-12 05:12] LABS: Albumin 1.8 G/DL (3.4-5.0); Bilirubin,Total 0.8 MG/DL (0.2-1.0); Calcium 8.7 MG/DL (8.5-10.1); Osmolality,Calculated 315.3 MOS/KG (273-304); Potassium 3.5 MMOL/L (3.5-5.1); Total Protein 5.3 G/DL (6.4-8.3)
[2018-05-12 05:15] LABS: Prealbumin 5.4 MG/DL (20-40)
[2018-05-12 05:34] LABS: Band Neutrophils 16 % (0-10); Lymphocytes 8 % (20-55); Metamyelocytes 1 %; Platelet Estimate Decreased; Segmented Neutrophils 72 % (50-85); Total Cells Counted 100
[2018-05-12] MEDS: LEVOTHYROXINE 75 MCG TABLET PO SCH (06:00)
[2018-05-12 06:30] LABS: Calcium 8.7 MG/DL (8.5-10.1); Osmolality,Calculated 317.2 MOS/KG (273-304); Potassium 3.5 MMOL/L (3.5-5.1)
[2018-05-12] MEDS: HYDROCORTISONE 10 MG TABLET PO SCH ×2 (09:29→20:14)
[2018-05-12] MEDS: ASPIRIN CHEW 81 MG TABLET PO SCH (09:30)
[2018-05-12] MEDS: CALCIUM (CARBONATE) 600 MG TABLET PO SCH ×3 (09:30→20:15)
[2018-05-12] MEDS: AMANTADINE 100 MG CAPSULE PO SCH ×2 (09:30→20:15)
[2018-05-12] MEDS: SODIUM CHLOR 0.45% KCL 20 MEQ 20 MEQ/1,000 ML BAG IV SCH ×2 (09:30→19:57)
[2018-05-12] MEDS: PANTOPRAZOLE 40 MG VIAL IV SCH (09:30)
[2018-05-12] MEDS: ENOXAPARIN 40 MG/0.4 ML SYRINGE SUBCUT SCH (09:36)
[2018-05-12] MEDS: DESMOPRESSIN 10 MCG NASAL SPRAY 5 ML BOTTLE ONE NARE SCH ×2 (09:37→20:17)
[2018-05-12 11:17] LABS: Calcium 8.8 MG/DL (8.5-10.1); Osmolality,Calculated 314.4 MOS/KG (273-304); Potassium 3.6 MMOL/L (3.5-5.1)
[2018-05-12 11:38] LABS: Free T4 (Free Thyroxine) 0.99 NG/DL (0.76-1.46); Thyroid Stimulating Hormone 0.071 uIU/ml (0.358-3.74)
[2018-05-12 12:27] LABS: Follicle Stimulating Hormone 1.5 MIU/ML; Prolactin 28.1 NG/ML
[2018-05-12 12:59] LABS: Luteinizing Hormone < 0.0 MIU/ML
[2018-05-12] MEDS: VANCOMYCIN INJ 1,500 MG in SODIUM CHLORIDE 0.9% 500 ML IV SCH ×2 (13:22→17:12)
[2018-05-12 14:19] LABS: Calcium 8.7 MG/DL (8.5-10.1); Osmolality,Calculated 309.7 MOS/KG (273-304); Potassium 3.6 MMOL/L (3.5-5.1)
[2018-05-12 18:25] LABS: Calcium 8.4 MG/DL (8.5-10.1); Osmolality,Calculated 309.6 MOS/KG (273-304); Potassium 3.9 MMOL/L (3.5-5.1)
[2018-05-12] MEDS: ATORVASTATIN 80 MG TABLET PO SCH (20:15)
[2018-05-12] MEDS: QUEtiapine 100 MG TABLET PO SCH (20:15)
[2018-05-12 22:01] LABS: Calcium 8.5 MG/DL (8.5-10.1); Osmolality,Calculated 302.9 MOS/KG (273-304); Potassium 3.4 MMOL/L (3.5-5.1)
[2018-05-13] MEDS: INSULIN REGULAR 100 UNIT/ML SUBCUT SCH ×5 (00:13→20:43)
[2018-05-13] MEDS: PIPERACILLIN/TAZOBACTAM 3,375 MG in SODIUM CHLORIDE 0.9% 100 ML IV SCH ×3 (02:15→18:03)
[2018-05-13] MEDS: SODIUM CHLOR 0.45% KCL 20 MEQ 20 MEQ/1,000 ML BAG IV SCH (06:10)
[2018-05-13] MEDS: LEVOTHYROXINE 75 MCG TABLET PO SCH (06:32)
[2018-05-13 06:53] LABS: Calcium 8.5 MG/DL (8.5-10.1); Osmolality,Calculated 301.7 MOS/KG (273-304); Potassium 3.6 MMOL/L (3.5-5.1)
[2018-05-13] MEDS: DESMOPRESSIN 10 MCG NASAL SPRAY 5 ML BOTTLE ONE NARE SCH ×2 (08:20→20:44)
[2018-05-13] MEDS: AMANTADINE 100 MG CAPSULE PO SCH ×2 (08:20→20:44)
[2018-05-13] MEDS: HYDROCORTISONE 10 MG TABLET PO SCH ×2 (08:20→20:43)
[2018-05-13] MEDS: ASPIRIN CHEW 81 MG TABLET PO SCH (08:20)
[2018-05-13] MEDS: ENOXAPARIN 40 MG/0.4 ML SYRINGE SUBCUT SCH (08:20)
[2018-05-13] MEDS: CALCIUM (CARBONATE) 600 MG TABLET PO SCH ×3 (08:21→20:44)
[2018-05-13] MEDS: PANTOPRAZOLE 40 MG VIAL IV SCH (08:21)
[2018-05-13 10:22] LABS: Calcium 8.7 MG/DL (8.5-10.1); Osmolality,Calculated 297.1 MOS/KG (273-304); Potassium 3.6 MMOL/L (3.5-5.1)
[2018-05-13] MEDS: STERILE WATER IV SCH ×2 (11:44→22:18)
[2018-05-13] MEDS: SODIUM BICARB IV SCH ×2 (11:44→22:18)
[2018-05-13] MEDS: POTASSIUM CHLORIDE IV SCH ×2 (11:44→22:18)
[2018-05-13] MEDS: VANCOMYCIN INJ 1,500 MG in SODIUM CHLORIDE 0.9% 500 ML IV SCH (11:55)
[2018-05-13 14:16] LABS: Calcium 8.3 MG/DL (8.5-10.1); Osmolality,Calculated 297.1 MOS/KG (273-304); Potassium 3.8 MMOL/L (3.5-5.1)
[2018-05-13] MEDS ORDERED: LORazepam 2 MG/1 ML VIAL IV PRN (17:22)
[2018-05-13 17:58] LABS: Calcium 8.4 MG/DL (8.5-10.1); Osmolality,Calculated 294.4 MOS/KG (273-304); Potassium 3.7 MMOL/L (3.5-5.1)
[2018-05-13] MEDS: ATORVASTATIN 80 MG TABLET PO SCH (20:43)
[2018-05-13] MEDS: QUEtiapine 100 MG TABLET PO SCH (20:44)
[2018-05-13 22:50] LABS: Calcium 8.1 MG/DL (8.5-10.1); Osmolality,Calculated 295.7 MOS/KG (273-304); Potassium 3.6 MMOL/L (3.5-5.1)
[2018-05-14] MEDS: PIPERACILLIN/TAZOBACTAM 3,375 MG in SODIUM CHLORIDE 0.9% 100 ML IV SCH ×3 (00:40→16:43)
[2018-05-14 02:10] LABS: Basophils % 0.2 % (0.0-0.8); Eosinophils % 0.3 % (0.00-10.9); Hematocrit 31.2 VOL% (42.0-52.0); Hemoglobin 9.8 GM/DL (14.0-18.0); Immature Granulocytes % 1.6 %; Lymphocytes # 0.6 10*3/uL (1.4-4.0); Lymphocytes % 9.9 % (21.2-54.2); Mean Corpuscular HGB Conc 31.4 GM/DL (32-36); Mean Corpuscular Hemoglobin 26 PG (27-34); Mean Corpuscular Volume 81.9 FL (87-102); Monocytes # 0.2 10*3/uL (0.11-0.8); Neutrophils # 5.4 10*3/uL (1.4-7.4); Platelet Count 136 T/CUMM (130-400); Red Blood Count 3.81 MC/CUMM (3.8-5.5); Red Cell Distribution Width 16.4 % (9.3-17.3); White Blood Count 6.4 T/CUMM (4-12)
[2018-05-14 02:27] LABS: Calcium 8.2 MG/DL (8.5-10.1); Osmolality,Calculated 296.6 MOS/KG (273-304); Potassium 3.8 MMOL/L (3.5-5.1)
[2018-05-14 02:33] LABS: Band Neutrophils 2 % (0-10); Lymphocytes 14 % (20-55); Segmented Neutrophils 80 % (50-85); Total Cells Counted 100
[2018-05-14 02:34] LABS: Platelet Estimate Normal; Tear Drop Cells Few
[2018-05-14 02:35] LABS: Hypochromasia Slight
[2018-05-14] MEDS: VANCOMYCIN INJ 1,500 MG in SODIUM CHLORIDE 0.9% 500 ML IV SCH ×2 (04:45→22:49)
[2018-05-14] MEDS: LEVOTHYROXINE 75 MCG TABLET PO SCH (05:33)
[2018-05-14 06:42] LABS: Calcium 8.2 MG/DL (8.5-10.1); Osmolality,Calculated 298.4 MOS/KG (273-304); Potassium 3.9 MMOL/L (3.5-5.1)
[2018-05-14] MEDS: INSULIN REGULAR 100 UNIT/ML SUBCUT SCH ×4 (08:57→20:19)
[2018-05-14] MEDS: POTASSIUM CHLORIDE IV SCH ×2 (08:59→20:02)
[2018-05-14] MEDS: STERILE WATER IV SCH ×2 (08:59→20:02)
[2018-05-14] MEDS: SODIUM BICARB IV SCH ×2 (08:59→20:02)
[2018-05-14] MEDS: HYDROCORTISONE 10 MG TABLET PO SCH ×2 (09:34→20:19)
[2018-05-14] MEDS: ASPIRIN CHEW 81 MG TABLET PO SCH (09:34)
[2018-05-14] MEDS: CALCIUM (CARBONATE) 600 MG TABLET PO SCH ×4 (09:34→20:20)
[2018-05-14] MEDS: ENOXAPARIN 40 MG/0.4 ML SYRINGE SUBCUT SCH (09:35)
[2018-05-14] MEDS: PANTOPRAZOLE 40 MG VIAL IV SCH (09:35)
[2018-05-14] MEDS: DESMOPRESSIN 10 MCG NASAL SPRAY 5 ML BOTTLE ONE NARE SCH ×2 (09:41→20:20)
[2018-05-14] MEDS: ALBUMIN 25% 25 GM in PREMIX 1 EACH IV SCH ×2 (10:28→18:21)
[2018-05-14] MEDS: AMANTADINE 100 MG CAPSULE PO SCH ×2 (10:28→20:19)
[2018-05-14 11:12] LABS: Adrenocorticotropic Hormone < 5.0 pg/mL
[2018-05-14 12:51] LABS: Growth Hormone, Serum 0.23 ng/mL
[2018-05-14] MEDS: SODIUM HYPOCHLORITE 0.25% IRRIG 473 ML BOTTLE TOP SCH (14:00)
[2018-05-14 15:19] LABS: Calcium 8.1 MG/DL (8.5-10.1); Potassium 3.8 MMOL/L (3.5-5.1)
[2018-05-14 18:15] LABS: Calcium 8.2 MG/DL (8.5-10.1); Osmolality,Calculated 297.8 MOS/KG (273-304); Potassium 3.7 MMOL/L (3.5-5.1)
[2018-05-14] MEDS: QUEtiapine 100 MG TABLET PO SCH (20:19)
[2018-05-14] MEDS: ATORVASTATIN 80 MG TABLET PO SCH (20:20)
[2018-05-15] MEDS: PIPERACILLIN/TAZOBACTAM 3,375 MG in SODIUM CHLORIDE 0.9% 100 ML IV SCH (00:19)
[2018-05-15] MEDS: ALBUMIN 25% 25 GM in PREMIX 1 EACH IV SCH ×3 (02:07→18:15)
[2018-05-15 05:09] LABS: Basophils % 0.3 % (0.0-0.8); Eosinophils % 0.6 % (0.00-10.9); Hematocrit 25.5 VOL% (42.0-52.0); Hemoglobin 8.2 GM/DL (14.0-18.0); Immature Granulocytes % 6.1 %; Immature Granulocytes Absolute 0.21 #; Lymphocytes # 0.7 10*3/uL (1.4-4.0); Lymphocytes % 20.6 % (21.2-54.2); Mean Corpuscular HGB Conc 32.2 GM/DL (32-36); Mean Corpuscular Hemoglobin 26 PG (27-34); Mean Corpuscular Volume 79.7 FL (87-102); Monocytes # 0.3 10*3/uL (0.11-0.8); Monocytes % 7.6 % (1.7-12.7); NRBC # 0.05 10*3/uL; Neutrophils # 2.2 10*3/uL (1.4-7.4); Neutrophils % 64.8 % (38.7-73.9); Platelet Count 109 T/CUMM (130-400); White Blood Count 3.4 T/CUMM (4-12)
[2018-05-15 05:12] LABS: Calcium 8.4 MG/DL (8.5-10.1); Osmolality,Calculated 288.7 MOS/KG (273-304); Potassium 3.6 MMOL/L (3.5-5.1)
[2018-05-15 05:34] LABS: Hypochromasia 1+; Lymphocytes 31 % (20-55); Platelet Estimate Decreased; Segmented Neutrophils 66 % (50-85); Total Cells Counted 100
[2018-05-15] MEDS: LEVOTHYROXINE 75 MCG TABLET PO SCH (06:06)
[2018-05-15] MEDS: SODIUM BICARB IV SCH ×2 (06:58→18:20)
[2018-05-15] MEDS: STERILE WATER IV SCH ×2 (06:58→18:20)
[2018-05-15] MEDS: POTASSIUM CHLORIDE IV SCH ×2 (06:58→18:20)
[2018-05-15] MEDS: INSULIN REGULAR 100 UNIT/ML SUBCUT SCH ×4 (07:30→20:04)
[2018-05-15] MEDS: DESMOPRESSIN 10 MCG NASAL SPRAY 5 ML BOTTLE ONE NARE SCH ×2 (08:50→20:04)
[2018-05-15] MEDS: ASPIRIN CHEW 81 MG TABLET PO SCH (08:52)
[2018-05-15] MEDS: CALCIUM (CARBONATE) 600 MG TABLET PO SCH ×3 (08:53→20:04)
[2018-05-15] MEDS: HYDROCORTISONE 10 MG TABLET PO SCH ×2 (08:53→20:04)
[2018-05-15] MEDS: AMANTADINE 100 MG CAPSULE PO SCH ×2 (08:54→20:05)
[2018-05-15] MEDS: FAMOTIDINE 20 MG TABLET PO SCH (08:54)
[2018-05-15] MEDS: LEVOFLOXACIN INJ 500 MG in PREMIX 1 EACH IV SCH (08:58)
[2018-05-15] MEDS: ENOXAPARIN 40 MG/0.4 ML SYRINGE SUBCUT SCH (09:05)
[2018-05-15] MEDS ORDERED: DEXTROSE 50% 25 GM/50 ML SYRINGE IV PRN (09:14)
[2018-05-15] MEDS: SODIUM HYPOCHLORITE 0.25% IRRIG 473 ML BOTTLE TOP SCH (12:01)
[2018-05-15] MEDS: ATORVASTATIN 80 MG TABLET PO SCH (20:04)
[2018-05-15] MEDS: QUEtiapine 100 MG TABLET PO SCH (20:05)
[2018-05-15] MEDS: VANCOMYCIN INJ 1,500 MG in SODIUM CHLORIDE 0.9% 500 ML IV SCH (23:07)
[2018-05-16] MEDS: ALBUMIN 25% 25 GM in PREMIX 1 EACH IV SCH (02:15)
[2018-05-16] MEDS: POTASSIUM CHLORIDE IV SCH ×2 (04:00→14:49)
[2018-05-16] MEDS: SODIUM BICARB IV SCH ×2 (04:00→14:49)
[2018-05-16] MEDS: STERILE WATER IV SCH ×2 (04:00→14:49)
[2018-05-16 04:19] LABS: Basophils % 0.3 % (0.0-0.8); Eosinophils % 0.5 % (0.00-10.9); Hematocrit 26.1 VOL% (42.0-52.0); Hemoglobin 8.1 GM/DL (14.0-18.0); Immature Granulocytes % 12.1 %; Immature Granulocytes Absolute 0.44 #; Lymphocytes # 0.5 10*3/uL (1.4-4.0); Lymphocytes % 14.8 % (21.2-54.2); Mean Corpuscular Hemoglobin 25 PG (27-34); Mean Corpuscular Volume 81.6 FL (87-102); Monocytes # 0.2 10*3/uL (0.11-0.8); Monocytes % 5.5 % (1.7-12.7); NRBC # 0.03 10*3/uL; Neutrophils # 2.4 10*3/uL (1.4-7.4); Neutrophils % 66.8 % (38.7-73.9); Platelet Count 108 T/CUMM (130-400); White Blood Count 3.7 T/CUMM (4-12)
[2018-05-16 04:40] LABS: Bilirubin,Total 0.8 MG/DL (0.2-1.0); Calcium 8.2 MG/DL (8.5-10.1); Osmolality,Calculated 291.1 MOS/KG (273-304); Potassium 3.9 MMOL/L (3.5-5.1); Total Protein 5.8 G/DL (6.4-8.3)
[2018-05-16 05:28] LABS: Band Neutrophils 5 % (0-10); Hypochromasia 1+; Lymphocytes 18 % (20-55); Metamyelocytes 1 %; Microcytosis 1+; Myelocytes 1 %; Ovalocytes Slight; Segmented Neutrophils 66 % (50-85); Total Cells Counted 100
[2018-05-16 05:29] LABS: Platelet Estimate Decreased; Tear Drop Cells Slight
[2018-05-16] MEDS: LEVOTHYROXINE 75 MCG TABLET PO SCH (05:50)
[2018-05-16] MEDS: INSULIN REGULAR 100 UNIT/ML SUBCUT SCH ×4 (08:39→20:27)
[2018-05-16] MEDS: ASPIRIN CHEW 81 MG TABLET PO SCH (09:52)
[2018-05-16] MEDS: CALCIUM (CARBONATE) 600 MG TABLET PO SCH ×3 (09:53→20:27)
[2018-05-16] MEDS: HYDROCORTISONE 10 MG TABLET PO SCH ×2 (09:54→20:27)
[2018-05-16] MEDS: FAMOTIDINE 20 MG TABLET PO SCH (09:54)
[2018-05-16] MEDS: AMANTADINE 100 MG CAPSULE PO SCH ×2 (09:55→20:27)
[2018-05-16] MEDS: LEVOFLOXACIN INJ 500 MG in PREMIX 1 EACH IV SCH (09:55)
[2018-05-16] MEDS: DESMOPRESSIN 10 MCG NASAL SPRAY 5 ML BOTTLE ONE NARE SCH ×2 (09:55→20:26)
[2018-05-16] MEDS: SODIUM HYPOCHLORITE 0.25% IRRIG 473 ML BOTTLE TOP SCH (15:58)
[2018-05-16] MEDS: ATORVASTATIN 80 MG TABLET PO SCH (20:27)
[2018-05-16] MEDS: QUEtiapine 100 MG TABLET PO SCH (20:27)
[2018-05-16] MEDS: VANCOMYCIN INJ 1,500 MG in SODIUM CHLORIDE 0.9% 500 ML IV SCH (23:15)
[2018-05-17] MEDS: POTASSIUM CHLORIDE IV SCH ×2 (01:58→14:08)
[2018-05-17] MEDS: STERILE WATER IV SCH ×2 (01:58→14:08)
[2018-05-17] MEDS: SODIUM BICARB IV SCH ×2 (01:58→14:08)
[2018-05-17 04:34] LABS: Basophils % 0.6 % (0.0-0.8); Eosinophils % 0.4 % (0.00-10.9); Hematocrit 29.2 VOL% (42.0-52.0); Hemoglobin 9.3 GM/DL (14.0-18.0); Immature Granulocytes % 22.8 %; Immature Granulocytes Absolute 1.24 #; Lymphocytes # 0.7 10*3/uL (1.4-4.0); Lymphocytes % 12.5 % (21.2-54.2); Mean Corpuscular HGB Conc 31.8 GM/DL (32-36); Mean Corpuscular Hemoglobin 26 PG (27-34); Mean Corpuscular Volume 81.3 FL (87-102); Monocytes # 0.2 10*3/uL (0.11-0.8); Monocytes % 4.2 % (1.7-12.7); NRBC # 0.09 10*3/uL; Neutrophils # 3.2 10*3/uL (1.4-7.4); Neutrophils % 59.5 % (38.7-73.9); Platelet Count 135 T/CUMM (130-400); Red Blood Count 3.59 MC/CUMM (3.8-5.5); Red Cell Distribution Width 15.9 % (9.3-17.3); White Blood Count 5.4 T/CUMM (4-12)
[2018-05-17 05:10] LABS: Band Neutrophils 9 % (0-10); Eosinophils 1 % (0-10); Hypochromasia 1+; Lymphocytes 15 % (20-55); Nucleated Red Blood Cells 1 (0-5); Ovalocytes Slight; Platelet Estimate Normal; Segmented Neutrophils 70 % (50-85); Total Cells Counted 100
[2018-05-17 05:11] LABS: Microcytosis 1+
[2018-05-17] MEDS: LEVOTHYROXINE 75 MCG TABLET PO SCH (06:18)
[2018-05-17] MEDS: CALCIUM (CARBONATE) 600 MG TABLET PO SCH ×3 (08:53→22:11)
[2018-05-17] MEDS: FAMOTIDINE 20 MG TABLET PO SCH (08:53)
[2018-05-17] MEDS: HYDROCORTISONE 10 MG TABLET PO SCH ×2 (08:53→22:11)
[2018-05-17] MEDS: AMANTADINE 100 MG CAPSULE PO SCH ×2 (08:53→22:11)
[2018-05-17] MEDS: ASPIRIN CHEW 81 MG TABLET PO SCH (08:53)
[2018-05-17] MEDS: SODIUM HYPOCHLORITE 0.25% IRRIG 473 ML BOTTLE TOP SCH (08:54)
[2018-05-17] MEDS: DESMOPRESSIN 10 MCG NASAL SPRAY 5 ML BOTTLE ONE NARE SCH ×2 (08:54→22:12)
[2018-05-17] MEDS: INSULIN REGULAR 100 UNIT/ML SUBCUT SCH ×4 (08:54→22:10)
[2018-05-17 09:42] LABS: Albumin 3.1 G/DL (3.4-5.0); Calcium 8.5 MG/DL (8.5-10.1); Osmolality,Calculated 293.7 MOS/KG (273-304); Potassium 4.1 MMOL/L (3.5-5.1)
[2018-05-17] MEDS: LEVOFLOXACIN INJ 500 MG in PREMIX 1 EACH IV SCH (11:36)
[2018-05-17] MEDS: QUEtiapine 25 MG TABLET PO SCH (22:11)
[2018-05-17] MEDS: ATORVASTATIN 80 MG TABLET PO SCH (22:11)
[2018-05-17] MEDS: VANCOMYCIN INJ 1,500 MG in SODIUM CHLORIDE 0.9% 500 ML IV SCH (23:23)
[2018-05-18] MEDS: LEVOTHYROXINE 75 MCG TABLET PO SCH (05:36)
[2018-05-18 05:41] LABS: Basophils % 0.4 % (0.0-0.8); Hematocrit 30.4 VOL% (42.0-52.0); Hemoglobin 9.4 GM/DL (14.0-18.0); Immature Granulocytes % 23.6 %; Immature Granulocytes Absolute 1.64 #; Lymphocytes # 0.8 10*3/uL (1.4-4.0); Lymphocytes % 11.2 % (21.2-54.2); Mean Corpuscular HGB Conc 30.9 GM/DL (32-36); Mean Corpuscular Hemoglobin 25 PG (27-34); Mean Corpuscular Volume 81.5 FL (87-102); Mean Platelet Volume 14.1 FL (9.6-12.0); Monocytes # 0.3 10*3/uL (0.11-0.8); Monocytes % 4.9 % (1.7-12.7); NRBC # 0.18 10*3/uL; Neutrophils # 4.2 10*3/uL (1.4-7.4); Neutrophils % 59.9 % (38.7-73.9); Platelet Count 158 T/CUMM (130-400); Red Blood Count 3.73 MC/CUMM (3.8-5.5); Red Cell Distribution Width 16.3 % (9.3-17.3)
[2018-05-18 06:01] LABS: Osmolality,Calculated 289.3 MOS/KG (273-304); Potassium 3.9 MMOL/L (3.5-5.1)
[2018-05-18 06:10] LABS: Band Neutrophils 1 % (0-10); Hypochromasia Slight; Lymphocytes 28 % (20-55); Nucleated Red Blood Cells 2 (0-5); Platelet Estimate Adequate; Polychromasia Few; Segmented Neutrophils 71 % (50-85); Total Cells Counted 100
[2018-05-18] MEDS: INSULIN REGULAR 100 UNIT/ML SUBCUT SCH ×4 (08:44→21:25)
[2018-05-18] MEDS: FAMOTIDINE 20 MG TABLET PO SCH (08:45)
[2018-05-18] MEDS: AMANTADINE 100 MG CAPSULE PO SCH ×2 (08:45→21:28)
[2018-05-18] MEDS: ASPIRIN CHEW 81 MG TABLET PO SCH (08:45)
[2018-05-18] MEDS: CALCIUM (CARBONATE) 600 MG TABLET PO SCH ×3 (08:45→21:26)
[2018-05-18] MEDS: SODIUM HYPOCHLORITE 0.25% IRRIG 473 ML BOTTLE TOP SCH (08:48)
[2018-05-18] MEDS: LEVOFLOXACIN INJ 500 MG in PREMIX 1 EACH IV SCH ×2 (08:48→12:56)
[2018-05-18] MEDS: DESMOPRESSIN 10 MCG NASAL SPRAY 5 ML BOTTLE BOTH NARES SCH ×2 (10:19→21:28)
[2018-05-18] MEDS ORDERED: HYDROCORTISONE 10 MG TABLET PO ONE (10:30)
[2018-05-18] MEDS: HYDROCORTISONE 10 MG TABLET PO SCH ×2 (12:59→21:26)
[2018-05-18] MEDS: LOSARTAN 25 MG TABLET PO SCH (15:24)
[2018-05-18] MEDS: QUEtiapine 25 MG TABLET PO SCH (21:26)
[2018-05-18] MEDS: ATORVASTATIN 80 MG TABLET PO SCH (21:26)
[2018-05-18] MEDS: VANCOMYCIN INJ 1,500 MG in SODIUM CHLORIDE 0.9% 500 ML IV SCH (23:51)
[2018-05-19] MEDS: LEVOTHYROXINE 75 MCG TABLET PO SCH (06:32)
[2018-05-19] MEDS: INSULIN REGULAR 100 UNIT/ML SUBCUT SCH ×4 (09:14→22:16)
[2018-05-19] MEDS: CALCIUM (CARBONATE) 600 MG TABLET PO SCH ×3 (09:15→21:57)
[2018-05-19] MEDS: FAMOTIDINE 20 MG TABLET PO SCH (09:16)
[2018-05-19] MEDS: ASPIRIN CHEW 81 MG TABLET PO SCH (09:16)
[2018-05-19] MEDS: HYDROCORTISONE 10 MG TABLET PO SCH ×2 (09:17→21:56)
[2018-05-19] MEDS: DESMOPRESSIN 10 MCG NASAL SPRAY 5 ML BOTTLE BOTH NARES SCH ×2 (09:19→21:57)
[2018-05-19] MEDS: LEVOFLOXACIN INJ 500 MG in PREMIX 1 EACH IV SCH (09:25)
[2018-05-19] MEDS: AMANTADINE 100 MG CAPSULE PO SCH ×2 (09:28→21:55)
[2018-05-19] MEDS: LOSARTAN 25 MG TABLET PO SCH (09:28)
[2018-05-19] MEDS: SODIUM HYPOCHLORITE 0.25% IRRIG 473 ML BOTTLE TOP SCH (09:44)
[2018-05-19] MEDS: QUEtiapine 25 MG TABLET PO SCH (21:55)
[2018-05-19] MEDS: ATORVASTATIN 80 MG TABLET PO SCH (21:56)
[2018-05-20] MEDS: LEVOTHYROXINE 75 MCG TABLET PO SCH (05:34)
[2018-05-20] MEDS: SODIUM HYPOCHLORITE 0.25% IRRIG 473 ML BOTTLE TOP SCH (08:20)
[2018-05-20] MEDS: INSULIN REGULAR 100 UNIT/ML SUBCUT SCH ×2 (11:25→13:32)
[2018-05-20] MEDS: FAMOTIDINE 20 MG TABLET PO SCH (11:34)
[2018-05-20] MEDS: LOSARTAN 25 MG TABLET PO SCH (11:34)
[2018-05-20] MEDS: AMANTADINE 100 MG CAPSULE PO SCH (11:34)
[2018-05-20] MEDS: ASPIRIN CHEW 81 MG TABLET PO SCH (11:35)
[2018-05-20] MEDS: HYDROCORTISONE 10 MG TABLET PO SCH (11:35)
[2018-05-20] MEDS: CALCIUM (CARBONATE) 600 MG TABLET PO SCH (11:37)
[2018-05-20] MEDS: DESMOPRESSIN 10 MCG NASAL SPRAY 5 ML BOTTLE BOTH NARES SCH (11:38)
[2018-05-20 12:42] VITALS: BP 120/77
== END 2018-05-20 15:30 | disposition home health service (06) | DRG 264 ==
LOC: N.ED 17:04 → N.CC 20:51 → N.EDINP 21:33 → SUATTDRO 21:33 → N.CC 22:08 → N.3E 05-17 13:55
PROVIDERS: ADMIT Surgery; ATTEND Family Medicine

== ENCOUNTER 2018-10-02 12:16 | Inpatient (IN) ==
[2018-10-02] MEDS ORDERED: HYDROCORTISONE 100 MG VIAL IV STA (12:44)
[2018-10-02] MEDS ORDERED: MEROPENEM 1,000 MG in SODIUM CHLORIDE 0.9% 100 ML IV STA (12:51)
[2018-10-02] MEDS ORDERED: SODIUM CHLORIDE 0.9% 1,000 ML IV STA (12:51)
[2018-10-02 13:10] LABS: Basophils # 0.1 10*3/uL (0.0-0.2); Basophils % 0.5 % (0.0-0.8); Eosinophils # 0.1 10*3/uL (0.0-0.87); Eosinophils % 1.1 % (0.00-10.9); Hemoglobin 11.9 GM/DL (14.0-18.0); Immature Granulocytes % 3.8 %; Lymphocytes # 1.2 10*3/uL (1.4-4.0); Lymphocytes % 11.6 % (21.2-54.2); Mean Corpuscular HGB Conc 30.5 GM/DL (32-36); Mean Corpuscular Volume 78.2 FL (87-102); Mean Platelet Volume 10.1 FL (9.6-12.0); Monocytes % 10.1 % (1.7-12.7); Neutrophils % 72.9 % (38.7-73.9); Platelet Count 514 T/CUMM (130-400); Red Blood Count 4.99 MC/CUMM (3.8-5.5); Red Cell Distribution Width 17.5 % (9.3-17.3); White Blood Count 10.4 T/CUMM (4-12)
[2018-10-02] MEDS ORDERED: MEROPENEM 1,000 MG VIAL IV ONE (13:29)
[2018-10-02 13:30] LABS: Albumin 3.7 G/DL (3.4-5.0); Bilirubin,Total 0.4 MG/DL (0.2-1.0); Calcium 10.8 MG/DL (8.5-10.1); Osmolality,Calculated 288.7 MOS/KG (273-304); Total Protein 8.4 G/DL (6.4-8.3)
[2018-10-02 14:22] LABS: Apearance,Urine CLOUDY (Clear); Bacteria,Urine Moderate /HPF (Few); Bilirubin,Urine Negative (Negative); Blood, Urine Small mg/dL (Negative); Glucose,Urine (UA) 50 mg/dL (Negative); Hyaline Casts,Urine 11 /LPF (0-3); Ketones,Urine Negative (Negative); Mucus,Urine Occasional /LPF (Occasional); Nitrite,Urine Positive (Negative); Protein,Urine Negative; RBC,Urine 11 /HPF (0-4); Urine Color Yellow (Yellow); Urine Specific Gravity 1.014 (1.001-1.035); Urine Urobilinogen < 2.0 EU/DL (0.2-1.0); WBC,Urine 345 /HPF (0-6)
[2018-10-02 14:22] LABS: Sedimentation Rate-Westergren 41 MM/HR (0-15)
[2018-10-02] MEDS ORDERED: ONDANSETRON 4 MG/2 ML VIAL IV PRN (14:56)
[2018-10-02] MEDS ORDERED: ACETAMINOPHEN 325 MG TABLET PO PRN (14:56)
[2018-10-02] MEDS ORDERED: DEXTROSE 50% 25 GM/50 ML VIAL IV PRN (15:03)
[2018-10-02] MEDS ORDERED: GLUCAGON 1 MG VIAL IM PRN (15:03)
[2018-10-02] MEDS ORDERED: SODIUM CHLORIDE 0.9% 500 ML IV STA (15:25)
[2018-10-02] MEDS: ENOXAPARIN 40 MG/0.4 ML SYRINGE SUBCUT SCH (16:22)
[2018-10-02] MEDS: INSULIN LISPRO 100 UNIT/ML SUBCUT SCH ×2 (17:38→22:09)
[2018-10-02] MEDS: hydrALAZINE 25 MG TABLET PO SCH ×3 (17:39→23:48)
[2018-10-02] MEDS: SODIUM CHLORIDE 0.9% 1,000 ML IV SCH (17:39)
[2018-10-02] MEDS: DESMOPRESSIN 10 MCG NASAL SPRAY 5 ML BOTTLE BOTH NARES SCH ×2 (19:04→22:06)
[2018-10-02] MEDS ORDERED: DESMOPRESSIN 0.2 MG PO SCH (21:00)
[2018-10-02] MEDS: AMANTADINE 100 MG CAPSULE PO SCH (22:10)
[2018-10-02] MEDS: DOCUSATE SODIUM 100 MG CAPSULE PO SCH (22:10)
[2018-10-02] MEDS: metFORMIN 500 MG TABLET PO SCH (22:10)
[2018-10-02] MEDS: CALCIUM (CARBONATE) 600 MG TABLET PO SCH (22:11)
[2018-10-02] MEDS: ATORVASTATIN 80 MG TABLET PO SCH (22:11)
[2018-10-02] MEDS: QUEtiapine 100 MG TABLET PO SCH (22:11)
[2018-10-02] MEDS: POTASSIUM CHLORIDE 10 MEQ TABLET PO SCH (22:11)
[2018-10-02] MEDS: INSULIN GLARGINE 100 UNIT/ML SUBCUT SCH (22:18)
[2018-10-03] MEDS: SODIUM CHLORIDE 0.9% 1,000 ML IV SCH ×3 (01:02→23:01)
[2018-10-03 06:12] LABS: Basophils % 0.6 % (0.0-0.8); Eosinophils # 0.2 10*3/uL (0.0-0.87); Eosinophils % 2.5 % (0.00-10.9); Hematocrit 30.6 VOL% (42.0-52.0); Hemoglobin 9.4 GM/DL (14.0-18.0); Immature Granulocytes % 5.7 %; Immature Granulocytes Absolute 0.39 #; Lymphocytes # 1.3 10*3/uL (1.4-4.0); Lymphocytes % 19.5 % (21.2-54.2); Mean Corpuscular HGB Conc 30.7 GM/DL (32-36); Mean Corpuscular Volume 78.7 FL (87-102); Mean Platelet Volume 10.2 FL (9.6-12.0); Monocytes % 12.4 % (1.7-12.7); Neutrophils % 59.3 % (38.7-73.9); Platelet Count 362 T/CUMM (130-400); Red Blood Count 3.89 MC/CUMM (3.8-5.5); Red Cell Distribution Width 17.2 % (9.3-17.3); White Blood Count 6.9 T/CUMM (4-12)
[2018-10-03 06:39] LABS: Calcium 9.8 MG/DL (8.5-10.1); Osmolality,Calculated 287.8 MOS/KG (273-304)
[2018-10-03] MEDS: LEVOTHYROXINE 75 MCG TABLET PO SCH (07:22)
[2018-10-03 07:23] LABS: Eosinophils 3 % (0-10); Lymphocytes 24 % (20-55); Platelet Estimate Normal; Segmented Neutrophils 65 % (50-85); Total Cells Counted 100
[2018-10-03 07:24] LABS: Hypochromasia Slight; Microcytosis 1+
[2018-10-03] MEDS: INSULIN LISPRO 100 UNIT/ML SUBCUT SCH ×4 (07:33→21:49)
[2018-10-03] MEDS: hydrALAZINE 25 MG TABLET PO SCH ×3 (07:35→22:57)
[2018-10-03] MEDS: DOCUSATE SODIUM 100 MG CAPSULE PO SCH ×2 (10:11→21:45)
[2018-10-03] MEDS: ASPIRIN CHEW 81 MG TABLET PO SCH (10:11)
[2018-10-03] MEDS: POTASSIUM CHLORIDE 10 MEQ TABLET PO SCH ×2 (10:11→21:46)
[2018-10-03] MEDS: CALCIUM (CARBONATE) 600 MG TABLET PO SCH ×3 (10:11→21:46)
[2018-10-03] MEDS: PANTOPRAZOLE 40 MG TABLET PO SCH (10:11)
[2018-10-03] MEDS: AMANTADINE 100 MG CAPSULE PO SCH ×2 (10:11→21:45)
[2018-10-03] MEDS: LOSARTAN 25 MG TABLET PO SCH (10:13)
[2018-10-03] MEDS: DESMOPRESSIN 10 MCG NASAL SPRAY 5 ML BOTTLE BOTH NARES SCH ×2 (10:13→22:59)
[2018-10-03] MEDS: metFORMIN 500 MG TABLET PO SCH ×2 (10:14→21:46)
[2018-10-03] MEDS ORDERED: HYDROCORTISONE 100 MG VIAL IM ONE (11:58)
[2018-10-03] MEDS: PIPERACILLIN/TAZOBACTAM 3,375 MG in SODIUM CHLORIDE 0.9% 100 ML IV SCH ×2 (13:15→20:55)
[2018-10-03] MEDS: ENOXAPARIN 40 MG/0.4 ML SYRINGE SUBCUT SCH (15:52)
[2018-10-03] MEDS: HYDROCORTISONE 10 MG TABLET PO SCH (21:45)
[2018-10-03] MEDS: ATORVASTATIN 80 MG TABLET PO SCH (21:45)
[2018-10-03] MEDS: QUEtiapine 100 MG TABLET PO SCH (21:47)
[2018-10-03] MEDS: INSULIN GLARGINE 100 UNIT/ML SUBCUT SCH (21:49)
[2018-10-04] MEDS: PIPERACILLIN/TAZOBACTAM 3,375 MG in SODIUM CHLORIDE 0.9% 100 ML IV SCH ×3 (04:21→21:04)
[2018-10-04 05:54] LABS: Basophils % 0.3 % (0.0-0.8); Eosinophils # 0.1 10*3/uL (0.0-0.87); Eosinophils % 1.4 % (0.00-10.9); Hematocrit 29.6 VOL% (42.0-52.0); Immature Granulocytes % 3.1 %; Immature Granulocytes Absolute 0.18 #; Lymphocytes # 0.8 10*3/uL (1.4-4.0); Lymphocytes % 13.8 % (21.2-54.2); Mean Corpuscular HGB Conc 30.4 GM/DL (32-36); Mean Corpuscular Volume 79.6 FL (87-102); Mean Platelet Volume 10.1 FL (9.6-12.0); Monocytes % 8.9 % (1.7-12.7); Neutrophils % 72.5 % (38.7-73.9); Platelet Count 355 T/CUMM (130-400); Red Blood Count 3.72 MC/CUMM (3.8-5.5); Red Cell Distribution Width 17.1 % (9.3-17.3); White Blood Count 5.7 T/CUMM (4-12)
[2018-10-04 06:07] LABS: Alanine Aminotransferase 19 U/L (16-61); Albumin 2.7 G/DL (3.4-5.0); Alkaline Phosphatase 59 U/L (45-117); Aspartate Amino Transferase 11 U/L (0-37); Bilirubin,Total < 0.39 MG/DL (0.2-1.0); Blood Urea Nitrogen 13 MG/DL (7-18); Calcium 9.4 MG/DL (8.5-10.1); Glucose 125 MG/DL (74-106); Osmolality,Calculated 286.8 MOS/KG (273-304); Total Protein 6.3 G/DL (6.4-8.3)
[2018-10-04] MEDS: LEVOTHYROXINE 75 MCG TABLET PO SCH (06:25)
[2018-10-04] MEDS: POTASSIUM CHLORIDE 10 MEQ TABLET PO SCH ×2 (09:41→21:03)
[2018-10-04] MEDS: ASPIRIN CHEW 81 MG TABLET PO SCH (09:41)
[2018-10-04] MEDS: metFORMIN 500 MG TABLET PO SCH ×2 (09:41→21:03)
[2018-10-04] MEDS: DOCUSATE SODIUM 100 MG CAPSULE PO SCH ×2 (09:41→21:03)
[2018-10-04] MEDS: PANTOPRAZOLE 40 MG TABLET PO SCH (09:42)
[2018-10-04] MEDS: AMANTADINE 100 MG CAPSULE PO SCH ×2 (09:42→21:03)
[2018-10-04] MEDS: HYDROCORTISONE 10 MG TABLET PO SCH ×2 (09:42→21:03)
[2018-10-04] MEDS: ENOXAPARIN 40 MG/0.4 ML SYRINGE SUBCUT SCH (09:42)
[2018-10-04] MEDS: DESMOPRESSIN 10 MCG NASAL SPRAY 5 ML BOTTLE BOTH NARES SCH ×2 (09:43→21:05)
[2018-10-04] MEDS: CALCIUM (CARBONATE) 600 MG TABLET PO SCH ×3 (09:47→21:03)
[2018-10-04] MEDS: hydrALAZINE 25 MG TABLET PO SCH ×2 (09:47→17:32)
[2018-10-04] MEDS: LOSARTAN 25 MG TABLET PO SCH (09:47)
[2018-10-04] MEDS: INSULIN LISPRO 100 UNIT/ML SUBCUT SCH ×3 (09:50→17:32)
[2018-10-04] MEDS ORDERED: MAGNESIUM SULF RIDER 2 GM in PREMIX 1 EACH IV PRN (16:57)
[2018-10-04] MEDS: SODIUM CHLORIDE 0.9% 1,000 ML IV SCH ×2 (17:31→21:01)
[2018-10-04] MEDS: SODIUM HYPOCHLORITE 0.25% IRRIG 473 ML BOTTLE TOP SCH (17:32)
[2018-10-04] MEDS: QUEtiapine 100 MG TABLET PO SCH (21:03)
[2018-10-04] MEDS: ATORVASTATIN 80 MG TABLET PO SCH (21:03)
[2018-10-04] MEDS: MAGNESIUM OXIDE 400 MG TABLET PO SCH (21:03)
[2018-10-04] MEDS: INSULIN GLARGINE 100 UNIT/ML SUBCUT SCH (21:04)
[2018-10-05] MEDS: INSULIN LISPRO 100 UNIT/ML SUBCUT SCH ×5 (01:08→20:44)
[2018-10-05] MEDS: hydrALAZINE 25 MG TABLET PO SCH ×3 (01:08→16:53)
[2018-10-05] MEDS: DESMOPRESSIN 10 MCG NASAL SPRAY 5 ML BOTTLE BOTH NARES SCH ×3 (01:19→20:37)
[2018-10-05] MEDS: PIPERACILLIN/TAZOBACTAM 3,375 MG in SODIUM CHLORIDE 0.9% 100 ML IV SCH ×3 (05:07→20:38)
[2018-10-05 05:08] LABS: Basophils % 0.4 % (0.0-0.8); Eosinophils # 0.1 10*3/uL (0.0-0.87); Eosinophils % 2.2 % (0.00-10.9); Hematocrit 27.5 VOL% (42.0-52.0); Hemoglobin 8.6 GM/DL (14.0-18.0); Immature Granulocytes % 4.2 %; Immature Granulocytes Absolute 0.23 #; Lymphocytes # 0.6 10*3/uL (1.4-4.0); Lymphocytes % 11.2 % (21.2-54.2); Mean Corpuscular HGB Conc 31.3 GM/DL (32-36); Mean Corpuscular Volume 78.3 FL (87-102); Mean Platelet Volume 10.9 FL (9.6-12.0); Monocytes % 7.3 % (1.7-12.7); Neutrophils % 74.7 % (38.7-73.9); Platelet Count 318 T/CUMM (130-400); Red Blood Count 3.51 MC/CUMM (3.8-5.5); Red Cell Distribution Width 17.1 % (9.3-17.3); White Blood Count 5.5 T/CUMM (4-12)
[2018-10-05 05:26] LABS: Alanine Aminotransferase 18 U/L (16-61); Albumin 2.5 G/DL (3.4-5.0); Alkaline Phosphatase 57 U/L (45-117); Aspartate Amino Transferase 12 U/L (0-37); Bilirubin,Total < 0.39 MG/DL (0.2-1.0); Blood Urea Nitrogen 13 MG/DL (7-18); Calcium 8.7 MG/DL (8.5-10.1); Glucose 185 MG/DL (74-106); Total Protein 5.9 G/DL (6.4-8.3)
[2018-10-05] MEDS: LEVOTHYROXINE 75 MCG TABLET PO SCH (06:19)
[2018-10-05] MEDS: POTASSIUM CHLORIDE 10 MEQ TABLET PO SCH ×2 (08:32→20:33)
[2018-10-05] MEDS: metFORMIN 500 MG TABLET PO SCH ×2 (08:32→20:33)
[2018-10-05] MEDS: PANTOPRAZOLE 40 MG TABLET PO SCH (08:33)
[2018-10-05] MEDS: AMANTADINE 100 MG CAPSULE PO SCH ×2 (08:33→20:46)
[2018-10-05] MEDS: MAGNESIUM OXIDE 400 MG TABLET PO SCH ×2 (08:33→20:33)
[2018-10-05] MEDS: LOSARTAN 25 MG TABLET PO SCH (08:33)
[2018-10-05] MEDS: CALCIUM (CARBONATE) 600 MG TABLET PO SCH ×3 (08:33→20:33)
[2018-10-05] MEDS: ASPIRIN CHEW 81 MG TABLET PO SCH (08:33)
[2018-10-05] MEDS: DOCUSATE SODIUM 100 MG CAPSULE PO SCH ×2 (08:34→20:33)
[2018-10-05] MEDS: SODIUM HYPOCHLORITE 0.25% IRRIG 473 ML BOTTLE TOP SCH (08:40)
[2018-10-05] MEDS: ENOXAPARIN 40 MG/0.4 ML SYRINGE SUBCUT SCH (08:40)
[2018-10-05] MEDS: HYDROCORTISONE 10 MG TABLET PO SCH ×2 (08:40→20:32)
[2018-10-05] MEDS: SODIUM CHLORIDE 0.9% 1,000 ML IV SCH (14:06)
[2018-10-05] MEDS: INSULIN GLARGINE 100 UNIT/ML SUBCUT SCH (20:33)
[2018-10-05] MEDS: QUEtiapine 100 MG TABLET PO SCH (20:33)
[2018-10-05] MEDS: ATORVASTATIN 80 MG TABLET PO SCH (20:33)
[2018-10-06] MEDS: hydrALAZINE 25 MG TABLET PO SCH ×2 (02:37→08:46)
[2018-10-06] MEDS: PIPERACILLIN/TAZOBACTAM 3,375 MG in SODIUM CHLORIDE 0.9% 100 ML IV SCH (05:25)
[2018-10-06] MEDS: LEVOTHYROXINE 75 MCG TABLET PO SCH (06:24)
[2018-10-06] MEDS: INSULIN LISPRO 100 UNIT/ML SUBCUT SCH ×2 (08:41→12:50)
[2018-10-06] MEDS: LOSARTAN 25 MG TABLET PO SCH (08:45)
[2018-10-06] MEDS: HYDROCORTISONE 10 MG TABLET PO SCH (08:45)
[2018-10-06] MEDS: DOCUSATE SODIUM 100 MG CAPSULE PO SCH (08:46)
[2018-10-06] MEDS: metFORMIN 500 MG TABLET PO SCH (08:46)
[2018-10-06] MEDS: POTASSIUM CHLORIDE 10 MEQ TABLET PO SCH (08:46)
[2018-10-06] MEDS: MAGNESIUM OXIDE 400 MG TABLET PO SCH (08:46)
[2018-10-06] MEDS: CALCIUM (CARBONATE) 600 MG TABLET PO SCH (08:46)
[2018-10-06] MEDS: SODIUM HYPOCHLORITE 0.25% IRRIG 473 ML BOTTLE TOP SCH (08:47)
[2018-10-06] MEDS: ENOXAPARIN 40 MG/0.4 ML SYRINGE SUBCUT SCH (08:47)
[2018-10-06] MEDS: DESMOPRESSIN 10 MCG NASAL SPRAY 5 ML BOTTLE BOTH NARES SCH (08:47)
[2018-10-06] MEDS: ASPIRIN CHEW 81 MG TABLET PO SCH (08:47)
[2018-10-06] MEDS: AMANTADINE 100 MG CAPSULE PO SCH (08:48)
[2018-10-06] MEDS: PANTOPRAZOLE 40 MG TABLET PO SCH (08:48)
[2018-10-06 09:59] LABS: Hematocrit 29.9 VOL% (42.0-52.0); Hemoglobin 9.2 GM/DL (14.0-18.0)
[2018-10-06 11:58] VITALS: BP 125/86
== END 2018-10-06 14:35 | disposition home health service (06) | DRG 699 ==
LOC: N.ED 12:16 → N.EDINP 14:56 → N.2E 15:47
PROVIDERS: ADMIT Family Medicine; ATTEND Family Medicine

== ENCOUNTER 2018-11-01 00:04 | Inpatient (IN) ==
[2018-11-01] MEDS ORDERED: PIPERACILLIN/TAZOBACTAM 3,375 MG in SODIUM CHLORIDE 0.9% 100 ML IV STA (00:44)
[2018-11-01] MEDS ORDERED: VANCOMYCIN INJ 1,000 MG in SODIUM CHLORIDE 0.9% 250 ML IV STA (00:44)
[2018-11-01] MEDS ORDERED: SODIUM CHLORIDE 0.9% 1,000 ML IV STA (00:44)
[2018-11-01] MEDS ORDERED: HYDROmorphone 2 MG/1 ML VIAL IV PRN (01:02)
[2018-11-01] MEDS ORDERED: ACETAMINOPHEN 325 MG TABLET PO PRN (01:02)
[2018-11-01] MEDS ORDERED: PROMETHAZINE 25 MG/1 ML VIAL IM PRN (01:02)
[2018-11-01] MEDS ORDERED: oxyCODONE/ACETAMINOPHEN 5-325 MG TABLET PO PRN (01:02)
[2018-11-01] MEDS ORDERED: ONDANSETRON 4 MG/2 ML VIAL IV PRN (01:02)
[2018-11-01] MEDS ORDERED: PNEUMOCOCCAL VACCINE (13 VALENT) 0.5 ML SYRINGE IM ONE (03:47)
[2018-11-01] MEDS: SODIUM CHLORIDE 0.9% 1,000 ML IV SCH ×3 (04:40→22:26)
[2018-11-01 06:30] LABS: Albumin 3.2 G/DL (3.4-5.0); Bilirubin,Total 0.6 MG/DL (0.2-1.0); Osmolality,Calculated 279.4 MOS/KG (273-304); Total Protein 6.7 G/DL (6.4-8.3)
[2018-11-01 06:33] LABS: Basophils % 0.4 % (0.0-0.8); Eosinophils # 0.2 10*3/uL (0.0-0.87); Eosinophils % 1.8 % (0.00-10.9); Hematocrit 33.6 VOL% (42.0-52.0); Hemoglobin 10.5 GM/DL (14.0-18.0); Immature Granulocytes % 4.2 %; Immature Granulocytes Absolute 0.34 #; Lymphocytes # 1.2 10*3/uL (1.4-4.0); Lymphocytes % 14.6 % (21.2-54.2); Mean Corpuscular HGB Conc 31.3 GM/DL (32-36); Mean Corpuscular Volume 77.4 FL (87-102); Mean Platelet Volume 10.7 FL (9.6-12.0); Monocytes % 9.8 % (1.7-12.7); Neutrophils % 69.2 % (38.7-73.9); Platelet Count 310 T/CUMM (130-400); Red Blood Count 4.34 MC/CUMM (3.8-5.5); Red Cell Distribution Width 16.8 % (9.3-17.3); White Blood Count 8.1 T/CUMM (4-12)
[2018-11-01] MEDS ORDERED: GLUCAGON 1 MG VIAL IM PRN (09:48)
[2018-11-01] MEDS ORDERED: DEXTROSE 50% 25 GM/50 ML VIAL IV PRN (09:48)
[2018-11-01] MEDS: ASPIRIN CHEW 81 MG TABLET PO SCH (10:38)
[2018-11-01] MEDS: DILTIAZEM CD 120 MG CAPSULE PO SCH ×2 (10:38→22:25)
[2018-11-01] MEDS: POTASSIUM CHLORIDE 10 MEQ TABLET PO SCH ×2 (10:38→21:34)
[2018-11-01] MEDS: PANTOPRAZOLE 40 MG TABLET PO SCH (10:38)
[2018-11-01] MEDS: LISINOPRIL 2.5 MG TABLET PO SCH (10:38)
[2018-11-01] MEDS: INSULIN GLARGINE 100 UNIT/ML SUBCUT SCH ×2 (10:39→22:24)
[2018-11-01] MEDS: DOCUSATE SODIUM 100 MG CAPSULE PO SCH ×2 (10:44→21:34)
[2018-11-01] MEDS ORDERED: LEVOFLOXACIN INJ 750 MG in PREMIX 1 EACH IV SCH (11:00)
[2018-11-01] MEDS: AMANTADINE 100 MG CAPSULE PO SCH ×2 (11:07→21:34)
[2018-11-01] MEDS: DESMOPRESSIN 10 MCG NASAL SPRAY 5 ML BOTTLE BOTH NARES SCH (11:08)
[2018-11-01] MEDS: INSULIN LISPRO 100 UNIT/ML SUBCUT SCH ×3 (11:54→22:42)
[2018-11-01 12:45] LABS: Apearance,Urine CLEAR (Clear); Bilirubin,Urine Negative (Negative); Blood, Urine Moderate mg/dL (Negative); Glucose,Urine (UA) 50 mg/dL (Negative); Ketones,Urine Negative (Negative); Mucus,Urine Occasional /LPF (Occasional); Nitrite,Urine Negative (Negative); Protein,Urine 30 MG/DL; RBC,Urine 18 /HPF (0-4); Urine Color Straw (Yellow); Urine Specific Gravity 1.011 (1.001-1.035); Urine Urobilinogen < 2.0 EU/DL (0.2-1.0); WBC,Urine 21 /HPF (0-6)
[2018-11-01] MEDS: SODIUM HYPOCHLORITE 0.25% IRRIG 473 ML BOTTLE TOP SCH (16:38)
[2018-11-01] MEDS ORDERED: QUEtiapine 100 MG TABLET PO SCH (21:00)
[2018-11-01] MEDS ORDERED: DESMOPRESSIN 10 MCG NASAL SPRAY 5 ML BOTTLE BOTH NARES SCH (21:00)
[2018-11-01] MEDS ORDERED: ATORVASTATIN 80 MG TABLET PO SCH (21:00)
[2018-11-02] MEDS: SODIUM CHLORIDE 0.9% 1,000 ML IV SCH ×2 (05:37→13:15)
[2018-11-02] MEDS ORDERED: LEVOTHYROXINE 75 MCG TABLET PO SCH (06:30)
[2018-11-02] MEDS: INSULIN LISPRO 100 UNIT/ML SUBCUT SCH ×2 (07:39→11:46)
[2018-11-02] MEDS: DOCUSATE SODIUM 100 MG CAPSULE PO SCH (08:37)
[2018-11-02] MEDS: ASPIRIN CHEW 81 MG TABLET PO SCH (08:37)
[2018-11-02] MEDS: DILTIAZEM CD 120 MG CAPSULE PO SCH (08:38)
[2018-11-02] MEDS: POTASSIUM CHLORIDE 10 MEQ TABLET PO SCH (08:38)
[2018-11-02] MEDS: LISINOPRIL 2.5 MG TABLET PO SCH (08:39)
[2018-11-02] MEDS: PANTOPRAZOLE 40 MG TABLET PO SCH (08:39)
[2018-11-02] MEDS: AMANTADINE 100 MG CAPSULE PO SCH (08:39)
[2018-11-02] MEDS: INSULIN GLARGINE 100 UNIT/ML SUBCUT SCH (08:40)
[2018-11-02] MEDS ORDERED: DESMOPRESSIN 10 MCG NASAL SPRAY 5 ML BOTTLE BOTH NARES SCH (09:00)
[2018-11-02] MEDS ORDERED: predniSONE 50 MG TABLET PO SCH (09:00)
[2018-11-02] MEDS ORDERED: LEVOFLOXACIN INJ 750 MG in PREMIX 1 EACH IV SCH (09:00)
[2018-11-02] MEDS: SODIUM HYPOCHLORITE 0.25% IRRIG 473 ML BOTTLE TOP SCH (11:47)
[2018-11-02 11:52] VITALS: BP 119/62
[2018-11-02] MEDS: DESMOPRESSIN 10 MCG NASAL SPRAY 5 ML BOTTLE BOTH NARES SCH (13:15)
== END 2018-11-02 12:58 | disposition home or self-care (01) | DRG 699 ==
LOC: EDUNIT# → N.ED 00:04 → N.EDINP 01:02 → N.2E 02:27
PROVIDERS: ADMIT Family Medicine; ATTEND Family Medicine

== ENCOUNTER 2020-10-28 21:20 | Inpatient (IN) ==
[2020-10-29] MEDS ORDERED: ONDANSETRON 4 MG/2 ML VIAL IV STA (01:55)
[2020-10-29] MEDS ORDERED: ASPIRIN 325 MG TABLET PO STA (01:55)
[2020-10-29] MEDS ORDERED: SODIUM CHLORIDE 0.9% 500 ML IV STA (01:55)
[2020-10-29 02:28] LABS: Basophils % 0.3 % (0.0-0.8); Eosinophils # 0.2 10*3/uL (0.0-0.87); Eosinophils % 2.8 % (0.00-10.9); Hematocrit 27.1 VOL% (42.0-52.0); Hemoglobin 8.2 GM/DL (14.0-18.0); Immature Granulocytes % 4.5 %; Immature Granulocytes Absolute 0.28 #; Lymphocytes # 1.4 10*3/uL (1.4-4.0); Lymphocytes % 23.3 % (21.2-54.2); Mean Corpuscular HGB Conc 30.3 GM/DL (32-36); Mean Platelet Volume 10.7 FL (9.6-12.0); Monocytes % 10.4 % (1.7-12.7); NRBC # 0.03 10*3/uL; Neutrophils % 58.7 % (38.7-73.9); Platelet Count 395 T/CUMM (130-400); Red Blood Count 3.66 MC/CUMM (3.8-5.5); Red Cell Distribution Width 20.4 % (9.3-17.3); White Blood Count 6.2 T/CUMM (4-12)
[2020-10-29 02:39] LABS: PT Patient Result 11.7 SECS (10.5-12.0); Partial Thromboplastin Time 28.7 SECS (23.9-33.8)
[2020-10-29 02:45] LABS: Alanine Aminotransferase 51 U/L (16-61); Albumin 3.2 G/DL (3.4-5.0); Alkaline Phosphatase 80 U/L (45-117); Aspartate Amino Transferase 74 U/L (0-37); Bilirubin,Total < 0.39 MG/DL (0.20-1.00); Blood Urea Nitrogen 9 MG/DL (7-18); Calcium 9.2 MG/DL (8.5-10.1); Carbon Dioxide 28 MMOL/L (21-32); Estimated Glom Filtration Rate 168 ML/MIN; Glucose 94 MG/DL (74-106); Osmolality,Calculated 275.5 MOS/KG (273-304); Potassium 4.9 MMOL/L (3.5-5.1); Sodium 139 MMOL/L (136-145); Total Protein 8.5 G/DL (6.4-8.2)
[2020-10-29 02:47] LABS: Barbiturates Screen,Urine Negative (Negative); Benzodiazepines Screen,Urine Negative (Negative); Cannabinoid Screen,Urine Negative (Negative); Opiate Screen,Urine Negative (Negative); Phencyclidine Screen,Urine Negative (Negative)
[2020-10-29 02:52] LABS: Bilirubin,Urine Negative (Negative); Blood, Urine Moderate mg/dL (Negative); Glucose,Urine (UA) Negative (Negative); Ketones,Urine Negative (Negative); Mucus,Urine Occasional /LPF (Occasional); Nitrite,Urine Negative (Negative); Protein,Urine Negative; RBC,Urine 95 /HPF (0-4); Squamous Epithelial Cell,Urine Occasional /HPF (0-10); Urine Appearance Slightly Hazy (Clear); Urine Color Yellow (Yellow); Urine Specific Gravity 1.009 (1.001-1.035); Urine Urobilinogen < 2.0 EU/DL (0.2-1.0)
[2020-10-29] MEDS ORDERED: MEROPENEM 500 MG in SODIUM CHLORIDE 0.9% 100 ML IV ONE (02:59)
[2020-10-29] MEDS ORDERED: MEROPENEM 500 MG VIAL ONE (03:32)
[2020-10-29] MEDS ORDERED: SODIUM CHLORIDE 0.9% 100 ML IV ONE (03:33)
[2020-10-29 04:01] LABS: Eosinophils 2 % (0-10); Lymphocytes 27 % (20-55); Myelocytes 1 %; Nucleated Red Blood Cells 4 (0-5); Segmented Neutrophils 62 % (50-85); Total Cells Counted 100
[2020-10-29 04:02] LABS: Hypochromasia 1+; Microcytosis 1+
[2020-10-29] MEDS ORDERED: LABETALOL 20 MG/4 ML SYRINGE IV PRN (04:04)
[2020-10-29] MEDS ORDERED: ACETAMINOPHEN 500 MG TABLET PO PRN (05:02)
[2020-10-29 08:12] LABS: Risk Ratio 1.8; VLDL Cholesterol 20.6 MG/DL
[2020-10-29] MEDS: ENOXAPARIN 40 MG/0.4 ML SYRINGE SUBCUT SCH (09:16)
[2020-10-29] MEDS: MEROPENEM 500 MG in SODIUM CHLORIDE 0.9% 100 ML IV SCH ×3 (09:16→22:37)
[2020-10-29] MEDS: INSULIN REGULAR 100 UNIT/ML SUBCUT SCH ×4 (09:32→21:02)
[2020-10-29] MEDS: PANTOPRAZOLE 40 MG TABLET PO SCH (12:26)
[2020-10-29] MEDS: LEVOTHYROXINE 75 MCG TABLET PO SCH (12:26)
[2020-10-29] MEDS: ASPIRIN 325 MG TABLET PO SCH (12:26)
[2020-10-29] MEDS: OXYBUTYNIN XL 10 MG TABLET PO SCH ×2 (12:26→21:26)
[2020-10-29] MEDS: AMANTADINE 100 MG CAPSULE PO SCH ×2 (12:26→21:26)
[2020-10-29] MEDS: lisinopriL 2.5 MG TABLET PO SCH (12:26)
[2020-10-29] MEDS: levETIRAcetam 500 MG TABLET PO SCH ×2 (12:26→21:26)
[2020-10-29] MEDS: MAGNESIUM OXIDE 400 MG TABLET PO SCH (12:26)
[2020-10-29] MEDS: GABAPENTIN 100 MG CAPSULE PO SCH ×3 (12:27→21:27)
[2020-10-29] MEDS: predniSONE 5 MG TABLET PO SCH (12:27)
[2020-10-29] MEDS: POTASSIUM CHLORIDE 10 MEQ TABLET PO SCH ×2 (12:27→21:27)
[2020-10-29] MEDS: DILTIAZEM CD 120 MG CAPSULE PO SCH ×2 (12:27→21:29)
[2020-10-29] MEDS: DESMOPRESSIN 0.1 MG PO SCH ×2 (14:01→21:49)
[2020-10-29] MEDS: QUEtiapine 100 MG TABLET PO SCH (21:26)
[2020-10-29] MEDS: ATORVASTATIN 80 MG TABLET PO SCH (21:26)
[2020-10-30] MEDS: MEROPENEM 500 MG in SODIUM CHLORIDE 0.9% 100 ML IV SCH ×4 (04:17→21:47)
[2020-10-30] MEDS: ENOXAPARIN 40 MG/0.4 ML SYRINGE SUBCUT SCH (04:18)
[2020-10-30 04:28] LABS: Basophils % 0.6 % (0.0-0.8); Eosinophils # 0.1 10*3/uL (0.0-0.87); Hematocrit 26.5 VOL% (42.0-52.0); Hemoglobin 8.2 GM/DL (14.0-18.0); Immature Granulocytes % 2.7 %; Immature Granulocytes Absolute 0.13 #; Lymphocytes # 1.3 10*3/uL (1.4-4.0); Lymphocytes % 26.6 % (21.2-54.2); Mean Corpuscular HGB Conc 30.9 GM/DL (32-36); Mean Corpuscular Volume 73.2 FL (87-102); Mean Platelet Volume 10.6 FL (9.6-12.0); Monocytes % 9.9 % (1.7-12.7); NRBC # 0.03 10*3/uL; Neutrophils % 57.2 % (38.7-73.9); Platelet Count 443 T/CUMM (130-400); Red Blood Count 3.62 MC/CUMM (3.8-5.5); Red Cell Distribution Width 20.2 % (9.3-17.3); White Blood Count 4.7 T/CUMM (4-12)
[2020-10-30 04:49] LABS: Band Neutrophils 1 % (0-10); Eosinophils 1 % (0-10); Hypochromasia 1+; Lymphocytes 24 % (20-55); Microcytosis 1+; Ovalocytes Slight; Platelet Estimate Adequate; Segmented Neutrophils 66 % (50-85); Total Cells Counted 100
[2020-10-30 04:53] LABS: Calcium 9.3 MG/DL (8.5-10.1); Potassium 4.3 MMOL/L (3.5-5.1)
[2020-10-30] MEDS: LEVOTHYROXINE 75 MCG TABLET PO SCH (06:24)
[2020-10-30] MEDS: INSULIN REGULAR 100 UNIT/ML SUBCUT SCH ×4 (07:36→21:37)
[2020-10-30] MEDS: levETIRAcetam 500 MG TABLET PO SCH ×2 (10:07→21:42)
[2020-10-30] MEDS: lisinopriL 2.5 MG TABLET PO SCH (10:07)
[2020-10-30] MEDS: GABAPENTIN 100 MG CAPSULE PO SCH ×3 (10:07→21:42)
[2020-10-30] MEDS: DESMOPRESSIN 0.1 MG PO SCH ×2 (10:08→22:27)
[2020-10-30] MEDS: predniSONE 5 MG TABLET PO SCH (10:08)
[2020-10-30] MEDS: POTASSIUM CHLORIDE 10 MEQ TABLET PO SCH ×2 (10:08→21:41)
[2020-10-30] MEDS: AMANTADINE 100 MG CAPSULE PO SCH ×2 (10:09→21:42)
[2020-10-30] MEDS: ASPIRIN 325 MG TABLET PO SCH (10:09)
[2020-10-30] MEDS: PANTOPRAZOLE 40 MG TABLET PO SCH (10:09)
[2020-10-30] MEDS: OXYBUTYNIN XL 10 MG TABLET PO SCH ×2 (10:09→21:42)
[2020-10-30] MEDS: MAGNESIUM OXIDE 400 MG TABLET PO SCH (10:10)
[2020-10-30] MEDS: DILTIAZEM CD 120 MG CAPSULE PO SCH ×2 (10:10→21:42)
[2020-10-30] MEDS: QUEtiapine 100 MG TABLET PO SCH (21:42)
[2020-10-30] MEDS: ATORVASTATIN 80 MG TABLET PO SCH (21:42)
[2020-10-30] MEDS ORDERED: SODIUM CHLORIDE 0.9% 250 ML IV ONE (23:53)
[2020-10-31] MEDS: ENOXAPARIN 40 MG/0.4 ML SYRINGE SUBCUT SCH (04:45)
[2020-10-31] MEDS: MEROPENEM 500 MG in SODIUM CHLORIDE 0.9% 100 ML IV SCH ×4 (04:47→22:04)
[2020-10-31] MEDS: LEVOTHYROXINE 75 MCG TABLET PO SCH (06:10)
[2020-10-31 07:08] LABS: Basophils % 0.3 % (0.0-0.8); Eosinophils # 0.2 10*3/uL (0.0-0.87); Eosinophils % 1.7 % (0.00-10.9); Hematocrit 28.1 VOL% (42.0-52.0); Hemoglobin 8.3 GM/DL (14.0-18.0); Immature Granulocytes % 1.5 %; Immature Granulocytes Absolute 0.16 #; Lymphocytes # 1.7 10*3/uL (1.4-4.0); Lymphocytes % 15.7 % (21.2-54.2); Mean Corpuscular HGB Conc 29.5 GM/DL (32-36); Mean Corpuscular Volume 75.5 FL (87-102); Mean Platelet Volume 10.4 FL (9.6-12.0); Monocytes % 7.9 % (1.7-12.7); NRBC # 0.04 10*3/uL; Neutrophils % 72.9 % (38.7-73.9); Platelet Count 421 T/CUMM (130-400); Red Blood Count 3.72 MC/CUMM (3.8-5.5); Red Cell Distribution Width 20.5 % (9.3-17.3); White Blood Count 10.7 T/CUMM (4-12)
[2020-10-31 07:29] LABS: Eosinophils 3 % (0-10); Hypochromasia 1+; Lymphocytes 13 % (20-55); Microcytosis 1+; Nucleated Red Blood Cells 1 (0-5); Platelet Estimate Adequate; Segmented Neutrophils 77 % (50-85); Total Cells Counted 100
[2020-10-31 07:46] LABS: Calcium 9.6 MG/DL (8.5-10.1); Osmolality,Calculated 288.6 MOS/KG (273-304); Potassium 4.3 MMOL/L (3.5-5.1)
[2020-10-31] MEDS: INSULIN REGULAR 100 UNIT/ML SUBCUT SCH ×4 (08:26→21:57)
[2020-10-31] MEDS: MAGNESIUM OXIDE 400 MG TABLET PO SCH (08:30)
[2020-10-31] MEDS: OXYBUTYNIN XL 10 MG TABLET PO SCH ×2 (08:30→21:57)
[2020-10-31] MEDS: DILTIAZEM CD 120 MG CAPSULE PO SCH ×2 (08:30→21:56)
[2020-10-31] MEDS: AMANTADINE 100 MG CAPSULE PO SCH ×2 (08:31→21:56)
[2020-10-31] MEDS: lisinopriL 2.5 MG TABLET PO SCH (08:31)
[2020-10-31] MEDS: predniSONE 5 MG TABLET PO SCH (08:31)
[2020-10-31] MEDS: ASPIRIN 325 MG TABLET PO SCH (08:31)
[2020-10-31] MEDS: POTASSIUM CHLORIDE 10 MEQ TABLET PO SCH ×2 (08:31→21:57)
[2020-10-31] MEDS: DESMOPRESSIN 0.1 MG PO SCH ×2 (08:32→21:57)
[2020-10-31] MEDS: levETIRAcetam 500 MG TABLET PO SCH ×2 (08:38→21:56)
[2020-10-31] MEDS: PANTOPRAZOLE 40 MG TABLET PO SCH (08:38)
[2020-10-31] MEDS: ATORVASTATIN 80 MG TABLET PO SCH (21:56)
[2020-11-01] MEDS: MEROPENEM 500 MG in SODIUM CHLORIDE 0.9% 100 ML IV SCH ×2 (04:16→09:18)
[2020-11-01] MEDS: ENOXAPARIN 40 MG/0.4 ML SYRINGE SUBCUT SCH (04:17)
[2020-11-01 04:41] LABS: Basophils % 0.4 % (0.0-0.8); Eosinophils # 0.2 10*3/uL (0.0-0.87); Eosinophils % 2.3 % (0.00-10.9); Hematocrit 27.4 VOL% (42.0-52.0); Hemoglobin 8.3 GM/DL (14.0-18.0); Immature Granulocytes Absolute 0.21 #; Lymphocytes # 1.9 10*3/uL (1.4-4.0); Lymphocytes % 17.5 % (21.2-54.2); Mean Corpuscular HGB Conc 30.3 GM/DL (32-36); Mean Corpuscular Volume 73.9 FL (87-102); Mean Platelet Volume 10.5 FL (9.6-12.0); Monocytes % 6.7 % (1.7-12.7); NRBC # 0.13 10*3/uL; Neutrophils % 71.1 % (38.7-73.9); Platelet Count 353 T/CUMM (130-400); Red Blood Count 3.71 MC/CUMM (3.8-5.5); Red Cell Distribution Width 20.7 % (9.3-17.3); White Blood Count 10.6 T/CUMM (4-12)
[2020-11-01 05:07] LABS: Calcium 9.1 MG/DL (8.5-10.1); Osmolality,Calculated 280.3 MOS/KG (273-304); Potassium 4.5 MMOL/L (3.5-5.1)
[2020-11-01 05:24] LABS: Band Neutrophils 1 % (0-10); Eosinophils 1 % (0-10); Hypochromasia Slight; Lymphocytes 22 % (20-55); Microcytosis Slight; Nucleated Red Blood Cells 1 (0-5); Platelet Estimate Normal; Segmented Neutrophils 67 % (50-85); Total Cells Counted 100
[2020-11-01] MEDS: LEVOTHYROXINE 75 MCG TABLET PO SCH (06:14)
[2020-11-01] MEDS: INSULIN REGULAR 100 UNIT/ML SUBCUT SCH ×2 (09:07→11:49)
[2020-11-01] MEDS: PANTOPRAZOLE 40 MG TABLET PO SCH (09:09)
[2020-11-01] MEDS: OXYBUTYNIN XL 10 MG TABLET PO SCH (09:09)
[2020-11-01] MEDS: MAGNESIUM OXIDE 400 MG TABLET PO SCH (09:09)
[2020-11-01] MEDS: ASPIRIN 325 MG TABLET PO SCH (09:09)
[2020-11-01] MEDS: levETIRAcetam 500 MG TABLET PO SCH (09:09)
[2020-11-01] MEDS: lisinopriL 2.5 MG TABLET PO SCH (09:09)
[2020-11-01] MEDS: DESMOPRESSIN 0.1 MG PO SCH (09:10)
[2020-11-01] MEDS: predniSONE 5 MG TABLET PO SCH (09:10)
[2020-11-01] MEDS: POTASSIUM CHLORIDE 10 MEQ TABLET PO SCH (09:10)
[2020-11-01] MEDS: DILTIAZEM CD 120 MG CAPSULE PO SCH (09:10)
[2020-11-01] MEDS: AMANTADINE 100 MG CAPSULE PO SCH (09:13)
[2020-11-01 12:33] VITALS: BP 111/61
== END 2020-11-01 15:15 | disposition home health service (06) | DRG 154 ==
LOC: N.ED 21:20 → N.EDINP 10-29 04:04 → SUATTDRO 10-29 04:04 → N.EDINP 10-29 05:16 → N.TELES 10-29 06:21
PROVIDERS: ADMIT Hospitalist; ATTEND Internal Medicine